=== PATIENT | female | born 1965 | race Caucasian/White ===

== ENCOUNTER 2017-09-19 15:26 | Emergency (ER) | payer SELFPAY ==
[~2017-09-19] VITALS: Ht 167.6 cm; Wt 59.0 kg
[~2017-09-19 15:26] MED LIST: PRED20 PO; VENTAER INH; ZITH250T PO
[2017-09-19 15:31] VITALS: BP 158/85; PULSE 87; RESP 18; TEMP 98; O2SAT 99
--- NOTE | 2017-09-19 15:59 | PD ---
HPI Chief Complaint: Skin Problem Time Seen by Provider: 15:58 Travel History International Travel<30 days: No Contact w/Intl Traveler<30days: No Traveled to known affect area: No History of Present Illness HPI 52-year-old female presents emergency department for evaluation of painful lesion on her left buttock that has increased in size and become more painful over the last 3 days. Patient denies any fever chills. She states the pain is constant, throbbing, 8 out of 10. She states it began draining today. She has no other symptoms to report. PFSH Past Medical History Medical History: Denies Significant Hx ?: Not : 3 Para: 3 Past Surgical History Section: Yes (X 2) Tonsillectomy: Yes Other Surgery: Yes (BILATERAL LUMPECTOMY) Social History Alcohol Use: Yes Tobacco Use: Yes Substance Use: No Allergies-Medications (Allergen,Severity, Reaction): Coded Allergies: shellfish derived (Unverified Allergy, Severe, 11/25/16) sulfamethoxazole (Unverified Allergy, Severe, 11/25/16) trimethoprim (Unverified Allergy, Severe, 11/25/16) Uncoded Allergies: MORPH (Allergy, Severe, 05/20/15) Reported Meds & Prescriptions Reported Meds & Active Scripts Active Ibuprofen 800 Mg Tab 800 Mg PO Q8H PRN Clindamycin (Clindamycin HCl) 150 Mg Cap 300 Mg PO Q6H 10 Days Zithromax Z-Santos (Azithromycin) 250 Mg Tab 250 Mg PO DIRECTED 500 MG (2 TABLETS) PO ON DAY 1, THEN 250 MG (1 TABLET) PO ON DAYS 2 TO 5. Deltasone (Prednisone) 20 Mg Tab 20 Mg PO DAILY Ventolin Hfa (Albuterol Sulfate) 18 Gm Aero 2 Puff INH Q4-6H PRN * SHAKE WELL BEFORE USE * Review of Systems Except as stated in HPI: all other systems reviewed are Neg Physical Exam Narrative GENERAL: Well-nourished, well-developed female patient in no acute distress SKIN: There is an indurated area in the left buttock which measures about 1 cm in diameter. It is fluctuant but there is no pointing or drainage. There is a zone of inflammation around it but no lymphangitis. HEAD: Normocephalic. EYES: No scleral icterus. No injection or drainage. NECK: Supple, trachea midline. No JVD or lymphadenopathy. CARDIOVASCULAR: Elevated rate and rhythm without murmurs, gallops, or rubs. RESPIRATORY: Breath sounds equal bilaterally. No accessory muscle use. GASTROINTESTINAL: Abdomen soft, non-tender, nondistended. MUSCULOSKELETAL: No cyanosis, or edema. BACK: Nontender without obvious deformity. No CVA tenderness. Data Data Last Documented VS Vital Signs Date Time Temp Pulse Resp B/P (MAP) Pulse Ox O2 Delivery O2 Flow Rate FiO2 09/19/17 15:31 98.0 87 18 158/85 (109) 99 Orders Orders Ibuprofen (Motrin) (09/19/17 16:30) Ed Discharge Order (09/19/17 16:23) MDM Medical Decision Making Medical Screen Exam Complete: Yes Emergency Medical Condition: Yes Medical Record Reviewed: Yes Differential Diagnosis Abscess versus erysipelas versus cellulitis versus insect bite Narrative Course 52-year-old female presents emergency department for evaluation of a painful lesion in her left buttock. This is consistent with abscess. I&D is complete. Patient is counseled on care and encouraged follow-up with primary care provider. She agrees to return immediately with acute worsening symptoms. Procedures Procedure Narrative INCISION AND DRAINAGE OF ABSCESS: The area was prepped and was sterilely draped. Topical ethyl chloride was used to anesthetize the area. The area was properly anesthetized. A number 11 scalpel was used to make a 1-cm incision across the area of the abscess. Cultures were obtained. The abscess was drained an irrigated with normal saline. Diagnosis Primary Impression: Left buttock abscess Referrals: Primary Care Physician Patient Instructions: Abscess Incision and Drainage (DC), General Instructions Additional Instructions: Warm compresses and sits baths Follow-up with a primary care provider Start antibiotic today and take it until it is all gone Return immediately with acute worsening symptoms Med/Other Pt SpecificInfo: Prescription(s) given Scripts Ibuprofen (Ibuprofen) 800 Mg Tab 800 MG PO Q8H Y for Pain/Inflammation, #30 TAB 0 Refills Prov: Lana Ruiz 09/19/17 Clindamycin (Clindamycin) 150 Mg Cap 300 MG PO Q6H for Infection for 10 Days, #80 CAP 0 Refills Prov: Lana Ruiz 09/19/17 Disposition: 01 DISCHARGE HOME Condition: Stable Lana Ruiz Sep 19, 2017 15:59
[2017-09-19] MEDS ORDERED: IBUP1TAB7 PO (16:25)
[2017-09-19] MEDS ORDERED: CLIN150C14 PO (16:25)
[2017-09-19] MEDS ORDERED: IBUPROFEN 800 MG TAB PO ONE (16:30)
== END 2017-09-19 16:44 | disposition home or self-care (01) ==
LOC: NEPD 15:26
DX: L02.31 Cutaneous abscess of buttock (principal); Z72.0 Tobacco use; Z88.2 Allergy status to sulfonamides; Z79.899 Other long term (current) drug therapy
CPT/HCPCS: 10060

== ENCOUNTER 2017-09-22 17:03 | Inpatient (IN) | payer SELFPAY ==
[~2017-09-22] VITALS: Ht 167.6 cm; Wt 62.9 kg
[~2017-09-22 17:03] MED LIST changes: +CLIN150C14 PO; +IBUP1TAB7 PO
[2017-09-22 17:28] VITALS: BP 163/75; PULSE 101; RESP 16; TEMP 100.3; O2SAT 100
[2017-09-22 18:17] LABS: BASOPHIL % 0.2 % (0.0-2.0); EOSINOPHIL # 0.1 TH/MM3 (0-0.4); EOSINOPHIL % 1.1 % (0.0-4.0); HEMATOCRIT 39.1 % (35.0-46.0); HEMOGLOBIN 13.4 GM/DL (11.6-15.3); LYMPHOCYTE # 1.1 TH/MM3 (1.0-4.8); MEAN CELL VOLUME 92.9 FL (80.0-100.0); MEAN CORPUSCULAR HEMOGLOBIN 31.7 PG (27.0-34.0); MEAN CORPUSCULAR HGB CONC 34.1 % (32.0-36.0); MEAN PLATELET VOLUME 8.5 FL (7.0-11.0); MONO % 8.2 % (0.0-8.0); MONOCYTE # 0.9 TH/MM3 (0-0.9); NEUT % 80.5 % (16.0-70.0); PLATELET COUNT 184 TH/MM3 (150-450); RED BLOOD COUNT 4.21 MIL/MM3 (4.00-5.30); WHITE BLOOD COUNT 11.2 TH/MM3 (4.0-11.0)
[2017-09-22 18:44] LABS: ALBUMIN 3.4 GM/DL (3.4-5.0); BLOOD UREA NITROGEN 13 MG/DL (7-18); CALCIUM 9.7 MG/DL (8.5-10.1); CHLORIDE 105 MEQ/L (98-107); CREATININE 0.55 MG/DL (0.50-1.00); GLOMERULAR FILTRATION RATE 117 ML/MIN (>89); GLUCOSE,RANDOM 101 MG/DL (74-106); SODIUM (NA) 140 MEQ/L (136-145)
[2017-09-22 18:45] LABS: ALT (GPT) 15 U/L (10-53); AST (GOT) 9 U/L (15-37)
[2017-09-22 18:48] LABS: ALKALINE PHOSPHATASE 93 U/L (45-117); TOTAL BILIRUBIN ADULT 0.4 MG/DL (0.2-1.0); TOTAL PROTEIN 7.7 GM/DL (6.4-8.2)
[2017-09-22] MEDS ORDERED: METOCLOPRAMIDE HCL 10 MG/2 ML VIAL IV PUSH ONE (20:30)
[2017-09-22] MEDS ORDERED: SODIUM CHLORID 0.9% 500 ML INJ 500 ML IV ONE (20:30)
[2017-09-22] MEDS ORDERED: VANCOMYCIN INJ 1,000 MG in SODIUM CHLOR 0.9% 250 ML INJ 250 ML IV ONE (20:30)
[2017-09-22] MEDS ORDERED: MORPHINE SULFATE 4 MG/ML INJ IV PUSH ONE (20:30)
[2017-09-22] MEDS ORDERED: PIPERACIL-TAZO 3.375 GM PREMIX 50 ML IV ONE (20:30)
[2017-09-22] MEDS ORDERED: ACETAMINOPHEN/HYDROcodone 325 MG/5 MG TAB PO ONE (21:00)
[2017-09-22] MEDS ORDERED: KETOROLAC TROMETHAMINE 30 MG/ML (IVP) VIAL IV PUSH ONE (21:00)
--- NOTE | 2017-09-22 21:08 | PD ---
HPI Chief Complaint: Skin Problem Time Seen by Provider: 20:10 Travel History International Travel<30 days: No Contact w/Intl Traveler<30days: No Traveled to known affect area: No History of Present Illness HPI 52-year-old female that presents to the ED for evaluation of skin problem. Patient reports that she has had a abscess on her left buttocks since last Thursday. Patient was seen here over the weekend on Thursday and had it drained. Patient will start antibiotics. Per patient the symptoms have not improved but actually seemed to be worsening. Per patient the abscess itself seems to be getting bigger and bigger. She does have drainage from the mass but she states that the pain and the symptoms appear to not be improving. She also states having some fevers and chills and sweats. She has been taking antibiotics since her last visit here. She denies any history of MRSA. She does have a allergy to Bactrim and morphine. She denies any urinary or bowel movement issues. Per patient the pain is 8 out of 10 and gets worse with touch. No history of this in the past. No history of IV drug abuse per patient. Has no other medical issues at this time. Takes no prescribed medications other than the medications given to her on her last visit here. PFSH Past Medical History Diminished Hearing: No Tetanus Vaccination: Unknown ?: Not : 3 Para: 3 Past Surgical History Section: Yes (X 2) Tonsillectomy: Yes Other Surgery: Yes (BILATERAL LUMPECTOMY) Social History Alcohol Use: Yes Tobacco Use: Yes Substance Use: No Allergies-Medications (Allergen,Severity, Reaction): Coded Allergies: morphine (Verified Allergy, Severe, 09/22/17) shellfish derived (Verified Allergy, Severe, 09/22/17) sulfamethoxazole (Verified Allergy, Severe, 09/22/17) trimethoprim (Verified Allergy, Severe, 09/22/17) Reported Meds & Prescriptions Reported Meds & Active Scripts Active Ibuprofen 800 Mg Tab 800 Mg PO Q8H PRN Clindamycin (Clindamycin HCl) 150 Mg Cap 300 Mg PO Q6H 10 Days Review of Systems Except as stated in HPI: all other systems reviewed are Neg Physical Exam Narrative GENERAL: SKIN: Warm and dry. Seen with female nurse present at all times. Patient does have a significant mass on her left lower buttocks. Masses almost about 10-20 cm in diameter. Patient does have an opening about 1 cm in diameter with purulence coming out of it. Very tender to touch. Some lymphadenopathy noted on the left upper groin area. Very warm to touch. HEAD: Atraumatic. Normocephalic. EYES: Pupils equal and round. No scleral icterus. No injection or drainage. ENT: No nasal bleeding or discharge. Mucous membranes pink and moist. Tongue is midline. No uvula deviation. NECK: Trachea midline. No JVD. CARDIOVASCULAR: Regular rate and rhythm. No murmurs, S3, S4. RESPIRATORY: No accessory muscle use. Clear to auscultation. Breath sounds equal bilaterally. GASTROINTESTINAL: Abdomen soft, non-tender, nondistended. Hepatic and splenic margins not palpable. MUSCULOSKELETAL: Extremities without clubbing, cyanosis, or edema. No obvious deformities. Full range of motion of the upper and lower extremities bilaterally. 2+ pulses bilaterally. NEUROLOGICAL: Awake and alert. No obvious cranial nerve deficits. Motor grossly within normal limits. Five out of 5 muscle strength in the arms and legs. Normal speech. PSYCHIATRIC: Appropriate mood and affect; insight and judgment normal. Data Data Last Documented VS Vital Signs Date Time Temp Pulse Resp B/P (MAP) Pulse Ox O2 Delivery O2 Flow Rate FiO2 09/22/17 17:28 100.3 101 16 163/75 (104) 100 Orders Orders Complete Blood Count With Diff (09/22/17 17:30) Comprehensive Metabolic Panel (09/22/17 17:30) Lactic Acid Sepsis Protocol (09/22/17 17:30) Blood Culture (09/22/17 17:30) Ct Pelvis W Iv Contrast(Rout) (09/22/17 ) Vancomycin Inj (Vancomycin Inj) (09/22/17 20:30) Piperacil-Tazo 3.375 Gm Premix (Zosyn 3. (09/22/17 20:30) Morphine Inj (Morphine Inj) (09/22/17 20:30) Metoclopramide Inj (Reglan Inj) (09/22/17 20:30) Sodium Chlorid 0.9% 500 Ml Inj (Ns 500 M (09/22/17 20:30) Ketorolac Inj (Toradol Inj) (09/22/17 21:00) Acetamin-Hydrocod 325-5 Mg (Watts 5-325 (09/22/17 21:00) Iohexol 350 Inj (Omnipaque 350 Inj) (09/22/17 21:34) Admit Order (Ed Use Only) (09/22/17 22:40) Labs Laboratory Tests Test 09/22/17 17:48 White Blood Count 11.2 TH/MM3 Red Blood Count 4.21 MIL/MM3 Hemoglobin 13.4 GM/DL Hematocrit 39.1 % Mean Corpuscular Volume 92.9 FL Mean Corpuscular Hemoglobin 31.7 PG Mean Corpuscular Hemoglobin Concent 34.1 % Red Cell Distribution Width 14.0 % Platelet Count 184 TH/MM3 Mean Platelet Volume 8.5 FL Neutrophils (%) (Auto) 80.5 % Lymphocytes (%) (Auto) 10.0 % Monocytes (%) (Auto) 8.2 % Eosinophils (%) (Auto) 1.1 % Basophils (%) (Auto) 0.2 % Neutrophils # (Auto) 9.0 TH/MM3 Lymphocytes # (Auto) 1.1 TH/MM3 Monocytes # (Auto) 0.9 TH/MM3 Eosinophils # (Auto) 0.1 TH/MM3 Basophils # (Auto) 0.0 TH/MM3 CBC Comment DIFF FINAL Differential Comment Blood Urea Nitrogen 13 MG/DL Creatinine 0.55 MG/DL Random Glucose 101 MG/DL Total Protein 7.7 GM/DL Albumin 3.4 GM/DL Calcium Level 9.7 MG/DL Alkaline Phosphatase 93 U/L Aspartate Amino Transf (AST/SGOT) 9 U/L Alanine Aminotransferase (ALT/SGPT) 15 U/L Total Bilirubin 0.4 MG/DL Sodium Level 140 MEQ/L Potassium Level 4.0 MEQ/L Chloride Level 105 MEQ/L Carbon Dioxide Level 27.0 MEQ/L Anion Gap 8 MEQ/L Estimat Glomerular Filtration Rate 117 ML/MIN Lactic Acid Level 0.9 mmol/L MDM Medical Decision Making Medical Screen Exam Complete: Yes Emergency Medical Condition: Yes Medical Record Reviewed: Yes Interpretation(s) CBC & BMP Diagram 09/22/17 17:48 Total Protein 7.7, Albumin 3.4, Calcium Level 9.7, Alkaline Phosphatase 93, Aspartate Amino Transf (AST/SGOT) 9 L, Alanine Aminotransferase (ALT/SGPT) 15, Total Bilirubin 0.4 lactic acid WNL Last Impressions Pelvis CT 09/22/17 0000 Signed Impressions: CONCLUSION: 1. Subcutaneous inflammatory changes in left medial thigh extending to the lab ia. Differential Diagnosis Abscess versus failed outpatient treatment versus significant abscess versus sepsis versus cellulitis Narrative Course 52-year-old female that presents to the ED for evaluation of abscess. Patient was properly examined and was found to have signs and symptoms very concerning for significant worsening of the abscess. Abscess seems to be getting bigger even though it is already open and draining. There is significant fluctuance noted going through the groin area. She does have lymphadenopathy. She is already compliant with the medications. Labs and imaging were ordered. Patient will have CT and IV antibiotics. Labs and imaging show slightly elevated white blood cell count as well as what appears to be acute subcutaneous changes to the left buttocks that appear to be extending into the labia. I reviewed the patient's medical records and per the provider who saw her on the ninth of this month the mass was about 1 cm. She had it drained. At this time recommendations for IV antibiotics and admission for further evaluation and possible surgical consult if does not improve. Patient agrees with this. Case discussed with my attending Dr Ortiz who agrees with plan. Residents agreed to admission to their team. Sepsis Criteria SIRS Criteria (2 or more): Heart rate over 90 Diagnosis Primary Impression: Cellulitis and abscess of buttock Additional Impression: Failure of outpatient treatment Admitting Information Admitting Physician Requests: Admit Ezio Hart Sep 22, 2017 21:08
[2017-09-22] MEDS ORDERED: IOHEXOL 350 MG/ML 10 ML VIAL (for RAD DIAG) IVCONTRAST ONE (21:34)
--- NOTE | 2017-09-22 21:41 | RADRPT ---
EXAM DATE: 09/22/2017 9:37 PM EDT AGE/SEX: 52 years / Female INDICATIONS: Fever, left buttocks abscess. CLINICAL DATA: This is the patient's initial encounter. Patient reports that signs and symptoms have been present for 1 day and indicates a pain score of 3/10. MEDICAL/SURGICAL HISTORY: None. section. RADIATION DOSE: 10.68 CTDI (mGy) COMPARISON: No prior exams available for comparison. TECHNIQUE: Multiple contiguous helical axial images were obtained through pelvis following bolus inf usion of 80 ml Omnipaque 350 (iohexol) nonionic water-soluble contrast as a single exam dose. Imag es were obtained using multiple row detector helical technique. . Using automated exposure control an d adjustment of the mA and/or kV according to patient size, radiation dose was kept as low as reasona ambrosio achievable to obtain optimal diagnostic quality images. FINDINGS: There is a large area of induration in the subcutaneous tissues left buttock that extends to the labi a without defined fluid. Origin would appear to be below the rectum. Right buttocks unremarkable. CONCLUSION: 1. Subcutaneous inflammatory changes in left medial thigh extending to the labia. Electronically signed by: Dyllan Cabrera MD 09/22/2017 9:40 PM EDT
--- NOTE | 2017-09-22 23:00 | HHI.HP ---
HPI Service Family Medicine Primary Care Physician No Primary Care Physician Admission Diagnosis acute worsening cellulitis and abcess of left buttox, failed outpati Diagnoses: International Travel<30 Days: No Contact w/Intl Traveler<30days: No Known Affected Area: No History of Present Illness Mrs. Yuan is a 52 y/o F presenting with failed ABX therapy of her L buttock cellulitis. Patient states she was seen in the ED on 09/19/17, for a "large pimple on her buttocks." During her ER visit the site was drained with minimal fluid, and she was discharged home on Clindamycin antibiotics ever 6 hours. She states she was compliant with the medication. The first night she noticed some relief, however Thursday she started having fevers with chills. She then noticed that the area was enlarging. Her pain also increased to the point she was unable to walk. Her pain is exacerbated by movement, and relieved by rest. She states that the lesion is approximately 7x bigger. She states the lesion is draining from the previous incision site, but the drainage is serosanguineous fluid only without pus. She endorses having inguinal lymphadenopathy as well as dysuria. Otherwise she has no complaints. (Mikie Flores MD R2) Review of Systems Constitutional: COMPLAINS OF: Fever, Chills Eyes: DENIES: Blurred vision, Double Vision Ears, nose, mouth, throat: DENIES: Throat pain, Running Nose Respiratory: DENIES: Cough, Shortness of breath Cardiovascular: DENIES: Chest pain, Palpitations Gastrointestinal: COMPLAINS OF: Abdominal pain, Diarrhea, Nausea, Vomiting, DENIES: Constipation Genitourinary: COMPLAINS OF: Dysuria, DENIES: Urinary frequency, Urinary incontinence Musculoskeletal: COMPLAINS OF: Muscle aches, Stiffness Integumentary: COMPLAINS OF: Rash Hematologic/lymphatic: COMPLAINS OF: Lymphadenopathy Immunologic/allergic: DENIES: Urticaria Neurologic: COMPLAINS OF: Headache Psychiatric: DENIES: Mood changes (Mikie Flores MD R2) Past Family Social History Past Medical History Breast Cancer with lumpectomy Past Surgical History C-sections Lumpectomy (Mikie Flores MD R2) Allergies: Coded Allergies: morphine (Verified Allergy, Severe, 09/22/17) shellfish derived (Verified Allergy, Severe, 09/22/17) sulfamethoxazole (Verified Allergy, Severe, 09/22/17) trimethoprim (Verified Allergy, Severe, 09/22/17) Family History Father - DM, otherwise healthy Mother - DM, otherwise healthy No other reported FMHx Social History She lives together with her Fiance. Currently works at [employer]. Alcohol - occasional, last drink was last week, 2-3 beers each episode Tobacco - 1/2 ppd, smoking for 15 years, no desire to quit Illicit - No reported history of illicit drug use (Mikie Flores MD R2) Physical Exam Vital Signs Vital Signs Date Time Temp Pulse Resp B/P (MAP) Pulse Ox O2 Delivery O2 Flow Rate FiO2 09/22/17 17:28 100.3 101 16 163/75 (104) 100 Physical Exam GENERAL: Well-nourished, well-developed female lying in bed with significant other at bedside and mild distress due to left buttock pain. SKIN: Warm and moist. No rash. L Buttock: Pelvic and buttock area examined with female infection prevention practitioner at all times. Left buttock with large, palpable indurated area measuring larger than 10 cm in horizontal diameter with 1 cm circular opening with purulent material visualized, but not draining. Patient very tender to palpation along the buttock as well as the inguinal and labial area. Tender lymphadenopathy appreciated in the inguinal area. Area very warm to palpation with erythematous skin changes. No fluctuant areas appreciated for possible abscess formation. HEENT: Atraumatic, normocephalic with extraocular motions intact. No rhinorrhea. Oropharynx clear. No palpable thyroid abnormality, LAD, or JVD appreciated. CARDIOVASCULAR: Tachycardic rate with regular rhythm. No obvious murmurs, gallops, or rubs. 2+ pulses in all four extremities. RESPIRATORY: Clear to auscultation bilaterally with no crackles, wheezes, or rhonchi. No increased work of breathing. GASTROINTESTINAL: Abdomen soft, non-tender, nondistended with positive bowel sounds. No masses appreciated. MUSCULOSKELETAL: No cyanosis or edema. No calf tenderness. Ambulating favoring the left side due to pain without assistance. NEURO/PSYCH: Afocal. Awake, alert, and oriented x3. Normal speech and judgement. Laboratory Laboratory Tests Test 09/22/17 17:48 White Blood Count 11.2 Red Blood Count 4.21 Hemoglobin 13.4 Hematocrit 39.1 Mean Corpuscular Volume 92.9 Mean Corpuscular Hemoglobin 31.7 Mean Corpuscular Hemoglobin Concent 34.1 Red Cell Distribution Width 14.0 Platelet Count 184 Mean Platelet Volume 8.5 Neutrophils (%) (Auto) 80.5 Lymphocytes (%) (Auto) 10.0 Monocytes (%) (Auto) 8.2 Eosinophils (%) (Auto) 1.1 Basophils (%) (Auto) 0.2 Neutrophils # (Auto) 9.0 Lymphocytes # (Auto) 1.1 Monocytes # (Auto) 0.9 Eosinophils # (Auto) 0.1 Basophils # (Auto) 0.0 CBC Comment DIFF FINAL Differential Comment Blood Urea Nitrogen 13 Creatinine 0.55 Random Glucose 101 Total Protein 7.7 Albumin 3.4 Calcium Level 9.7 Alkaline Phosphatase 93 Aspartate Amino Transf (AST/SGOT) 9 Alanine Aminotransferase (ALT/SGPT) 15 Total Bilirubin 0.4 Sodium Level 140 Potassium Level 4.0 Chloride Level 105 Carbon Dioxide Level 27.0 Anion Gap 8 Estimat Glomerular Filtration Rate 117 Lactic Acid Level 0.9 Date/Time Source Procedure Growth Status 09/22/17 17:55 Blood Peripheral Aerobic Blood Culture Pending Received 09/22/17 17:55 Blood Peripheral Anaerobic Blood Culture Pending Received (Mikie Flores MD R2) Result Diagram: 09/22/17 1748 09/22/17 1748 Imaging Last [address] 09/22/17 0000 Signed Impressions: CONCLUSION: 1. Subcutaneous inflammatory changes in left medial thigh extending to the lab ia. (Mikie Flores MD R2) Caprini VTE Risk Assessment Caprini VTE Risk Assessment: Mod/High Risk (score >= 2) Caprini Risk Assessment Model Point Value = 1 Point Value = 2 Point Value = 3 Point Value = 5 Age 41-60 Minor surgery BMI > 25 kg/m2 Swollen legs Varicose veins or History of unexplained or recurrent spontaneous Oral contraceptives or hormone replacement Sepsis (< 1 month) Serious lung disease, including pneumonia (< 1 month) Abnormal pulmonary function Acute myocardial infarction Congestive heart failure (< 1 month) History of inflammatory bowel disease Medical patient at bed rest Age 61-74 Arthroscopic surgery Major open surgery (> 45 min) Laparoscopic surgery (> 45 min) Malignancy Confined to bed (> 72 hours) Immobilizing plaster cast Central venous access Age >= 75 History of VTE Family history of VTE Factor V Leiden Prothrombin [id number] Lupus anticoagulant Anticardiolipin antibodies Elevated serum homocysteine Heparin-induced thrombocytopenia Other congenital or acquired thrombophilia Stroke (< 1 month) Elective arthroplasty Hip, pelvis, or leg fracture Acute spinal cord injury (< 1 month) Prophylaxis Regimen Total Risk Factor Score Risk Level Prophylaxis Regimen 0-1 Low Early ambulation 2 Moderate Order ONE of the following: *Sequential Compression Device (SCD) *Heparin 5000 units SQ BID 3-4 Higher Order ONE of the following medications: *Heparin 5000 units SQ TID *Enoxaparin/Lovenox 40 mg SQ daily (WT < 150 kg, CrCl > 30 mL/min) *Enoxaparin/Lovenox 30 mg SQ daily (WT < 150 kg, CrCl > 10-29 mL/min) *Enoxaparin/Lovenox 30 mg SQ BID (WT < 150 kg, CrCl > 30 mL/min) AND/OR *Sequential Compression Device (SCD) 5 or more Highest Order ONE of the following medications: *Heparin 5000 units SQ TID (Preferred with Epidurals) *Enoxaparin/Lovenox 40 mg SQ daily (WT < 150 kg, CrCl > 30 mL/min) *Enoxaparin/Lovenox 30 mg SQ daily (WT < 150 kg, CrCl > 10-29 mL/min) *Enoxaparin/Lovenox 30 mg SQ BID (WT < 150 kg, CrCl > 30 mL/min) AND *Sequential Compression Device (SCD) (Mikie Flores MD R2) Assessment and Plan Assessment and Plan Ms. Yuan is a 52-year-old female admitted for cellulitis secondary to failure of outpatient antibiotics. Code Status Full code Discussed Condition With ROSEANNE Cervantes (Mikie Flores MD R2) Problem List: (1) Sepsis ICD Codes: A41.9 - Sepsis, unspecified organism Status: Resolved Plan: -Patient presenting with fever up to 100.3 after at home Tylenol dose with tachycardia up to 101 bpm. -Likely source of infection left buttock cellulitis. -Lactic acid 0.9 not meeting severe sepsis criteria (2) Cellulitis and abscess of buttock ICD Codes: L02.31 - Cutaneous abscess of buttock; L03.317 - Cellulitis of buttock Status: Acute Plan: -CT abdomen and pelvis: Large area of induration in the subcutaneous tissues of the left buttock that extend to the labia without defined fluid. -CBC: WBC 11.2 with 80.5% neutrophils -ESR: 60 -Blood cultures: Pending -K thermia pad ordered Medications: -Vancomycin and Zosyn given once in ED -Continue vancomycin, pharmacy consulted for renal dosing -Continue Zosyn 3.375 g every 6 hours to cover for gram-negative and anaerobic bacteria as lesion is proximal to the rectum -Toradol 30 mg every 6 hours scheduled -Tylenol as needed for fever (3) Failure of outpatient treatment ICD Codes: Z78.9 - Other specified health status Status: Acute Plan: -Patient admitted to failing outpatient therapy with clindamycin (4) Nutrition, metabolism, and development symptoms ICD Codes: R63.8 - Other symptoms and signs concerning food and fluid intake Status: Acute Plan: -Fluids: Normal saline at 90 mL/h -Diet: Regular as tolerated -Electrolytes: Within normal limits, continue to monitor -Prophylaxis: Tylenol as needed for fever, clonidine as needed for blood pressure greater than 180/110, albuterol as needed for shortness of breath, constipation protocol, Zofran as needed for nausea/vomiting -Physical therapy consulted (5) DVT prophylaxis Status: Acute Plan: -SCDs Medications: -Heparin 5000 units every 8 hours (Mikie Flores MD R2) Problem List: (1) Sepsis ICD Codes: A41.9 - Sepsis, unspecified organism Status: Resolved Plan: -Patient presenting with fever up to 100.3 after at home Tylenol dose with tachycardia up to 101 bpm. -Likely source of infection left buttock cellulitis. -Lactic acid 0.9 not meeting severe sepsis criteria (2) Cellulitis and abscess of buttock ICD Codes: L02.31 - Cutaneous abscess of buttock; L03.317 - Cellulitis of buttock Status: Acute Plan: -CT abdomen and pelvis: Large area of induration in the subcutaneous tissues of the left buttock that extend to the labia without defined fluid. -CBC: WBC 11.2 with 80.5% neutrophils -ESR: 60 -Blood cultures: Pending -K thermia pad ordered Medications: -Vancomycin and Zosyn given once in ED -Continue vancomycin, pharmacy consulted for renal dosing -Continue Zosyn 3.375 g every 6 hours to cover for gram-negative and anaerobic bacteria as lesion is proximal to the rectum -Toradol 30 mg every 6 hours scheduled -Tylenol as needed for fever (3) Failure of outpatient treatment ICD Codes: Z78.9 - Other specified health status Status: Acute Plan: -Patient admitted to failing outpatient therapy with clindamycin (4) Nutrition, metabolism, and development symptoms ICD Codes: R63.8 - Other symptoms and signs concerning food and fluid intake Status: Acute Plan: -Fluids: Normal saline at 90 mL/h -Diet: Regular as tolerated -Electrolytes: Within normal limits, continue to monitor -Prophylaxis: Tylenol as needed for fever, clonidine as needed for blood pressure greater than 180/110, albuterol as needed for shortness of breath, constipation protocol, Zofran as needed for nausea/vomiting -Physical therapy consulted (5) DVT prophylaxis Status: Acute Plan: -SCDs Medications: -Heparin 5000 units every 8 hours See the residents documentation for details. I saw and evaluated the patient regarding the martinez portions of this evaluation and agree with the residents findings and plans as written. Parts of this note were created using [employer] voice recognition software program. While efforts were made to correct any mistakes made by this software, some mistakes, errors, and omissions may remain in the final note that were not caught when the note was originally created. Plan of care was discussed and agreed upon with the patient as specifically documented in the above note. An opportunity to ask questions with explanation was provided. Patient voiced understanding on all information reviewed and discussed. (Nick Weeks MD) Physician Certification 2 Midnight Certification Type: Admission for Inpatient Services Order for Inpatient Services The services are ordered in accordance with Medicare regulations or non- Medicare payer requirements, as applicable. In the case of services not specified as inpatient-only, they are appropriately provided as inpatient services in accordance with the 2-midnight benchmark. Estimated LOS (days): 3 3 days is the estimated time the patient will need to remain in the hospital, assuming treatment plan goals are met and no additional complications. Post-Hospital Plan: Home (Mikie Flores MD R2) Problem Qualifiers (1) Sepsis: Qualified Codes: A41.9 - Sepsis, unspecified organism Mikie Flores MD R2 Sep 22, 2017 23:00 Nick Weeks MD Sep 24, 2017 11:53
[2017-09-22] MEDS ORDERED: SODIUM CHLORIDE 0.9% FLUSH 10 ML FLUSH IV FLUSH PRN (23:30)
[2017-09-22] MEDS ORDERED: Vancomycin Consult Pharmacy 1 EA OTHER SCH (23:30)
[2017-09-23] VITALS (8 sets, daily range): BP systolic 94–141; BP diastolic 57–83; PULSE 63–83; RESP 16–21; TEMP 97.6–98.5; O2SAT 96–99
[2017-09-23] MEDS: SODIUM CHLOR 0.9% 1000 ML INJ 1,000 ML IV SCH ×3 (00:03→21:35)
[2017-09-23] MEDS: KETOROLAC TROMETHAMINE 30 MG/ML (IVP) VIAL IVP SCH ×5 (00:04→23:51)
[2017-09-23] MEDS: HEPARIN SODIUM - SQ 10,000 UNITS/ML VIAL SQ SCH ×4 (00:04→23:52)
[2017-09-23] MEDS ORDERED: BISACODYL 10 MG SUPP RECTAL PRN (01:15)
[2017-09-23] MEDS ORDERED: RESP: ALBUTEROL 2.5 MG/3 ML NEB (PRN) NEB (01:15)
[2017-09-23] MEDS ORDERED: MAGNESIUM HYDROXIDE SUSP 30 ML CUP PO PRN (01:15)
[2017-09-23] MEDS ORDERED: SENNOSIDES 8.6 MG TAB PO PRN (01:15)
[2017-09-23] MEDS ORDERED: cloNIDine HCL 0.1 MG TAB PO PRN (01:15)
[2017-09-23 05:06] LABS: AUTOMATED NEUTROPHIL # 5.9 TH/MM3 (1.8-7.7); BASOPHIL % 0.3 % (0.0-2.0); EOSINOPHIL # 0.1 TH/MM3 (0-0.4); EOSINOPHIL % 1.6 % (0.0-4.0); HEMATOCRIT 32.3 % (35.0-46.0); LYMPH % 12.3 % (9.0-44.0); LYMPHOCYTE # 0.9 TH/MM3 (1.0-4.8); MEAN CELL VOLUME 93.2 FL (80.0-100.0); MEAN CORPUSCULAR HEMOGLOBIN 31.8 PG (27.0-34.0); MEAN CORPUSCULAR HGB CONC 34.1 % (32.0-36.0); MEAN PLATELET VOLUME 8.9 FL (7.0-11.0); MONO % 8.9 % (0.0-8.0); MONOCYTE # 0.7 TH/MM3 (0-0.9); NEUT % 76.9 % (16.0-70.0); PLATELET COUNT 154 TH/MM3 (150-450); RED BLOOD COUNT 3.47 MIL/MM3 (4.00-5.30); RED CELL DISTRIBUTION WIDTH 13.7 % (11.6-17.2); WHITE BLOOD COUNT 7.6 TH/MM3 (4.0-11.0)
[2017-09-23 05:22] LABS: BICARBONATE 25.2 MEQ/L (21.0-32.0); CALCIUM 8.1 MG/DL (8.5-10.1); CREATININE 0.46 MG/DL (0.50-1.00)
[2017-09-23] MEDS: PIPERACIL-TAZO 3.375 GM PREMIX 50 ML IV SCH ×4 (05:34→23:50)
[2017-09-23] MEDS ORDERED: POTASSIUM CHLORIDE 10 MEQ CONTROLLED RELEASE TAB PO ONE (05:45)
[2017-09-23] MEDS: SODIUM CHLORIDE 0.9% FLUSH 10 ML FLUSH IV FLUSH SCH ×2 (08:35→21:24)
[2017-09-23 08:50] LABS: INTERNATIONAL NORMALIZED RATIO 1.1 RATIO
[2017-09-23] MEDS ORDERED: VANCOMYCIN INJ 1,200 MG in SODIUM CHLOR 0.9% 250 ML INJ 250 ML IV SCH (09:00)
[2017-09-23] MEDS: DOCUSATE SODIUM 50 MG/SENNA 8.6 MG TAB PO SCH ×2 (09:00→21:24)
[2017-09-23] MEDS: ACETAMINOPHEN 500 MG CPLT PO PRN ×2 (10:19→21:25)
[2017-09-23] MEDS: ONDANSETRON ODT 4 MG TAB PO PRN (15:45)
--- NOTE | 2017-09-23 17:45 | HHI.FPPN ---
Subjective Remarks Patient was seen and evaluated this morning. She is in obvious pain. Patient denies chest pain, heart palpitations, shortness of breath, nausea/vomiting, diarrhea and constipation. All questions were answered. (Amber Wolff MD R1) Objective Vitals Vital Signs Date Time Temp Pulse Resp B/P (MAP) Pulse Ox O2 Delivery O2 Flow Rate FiO2 09/23/17 15:32 98.1 74 18 141/76 (97) 99 09/23/17 13:48 20 09/23/17 11:25 97.7 83 18 125/83 (97) 97 09/23/17 11:24 20 09/23/17 07:45 97.6 70 16 124/74 (91) 98 09/23/17 06:10 76 18 105/66 (79) 96 09/23/17 03:42 98.5 77 16 94/57 (69) 98 09/23/17 00:09 98.2 76 16 114/64 (81) 97 09/22/17 17:28 100.3 101 16 163/75 (104) 100 I/O 09/22/17 09/22/17 09/22/17 09/23/17 09/23/17 09/23/17 07:00 15:00 23:00 07:00 15:00 23:00 Intake Total 530 ml 300 ml 50 ml Balance 530 ml 300 ml 50 ml Intake Oral 480 ml IV Total 50 ml 300 ml 50 ml # Voids 2 (Amber Wolff MD R1) Result Diagram: 09/23/17 0352 09/23/17 0352 Imaging Last Impressions Pelvis CT 09/22/17 0000 Signed Impressions: CONCLUSION: 1. Subcutaneous inflammatory changes in left medial thigh extending to the lab ia. Objective Remarks GENERAL: Well-nourished, well-developed female lying in bed, in obvious distress. SKIN: Warm and moist. No rash. * L Buttocks: Left buttocks with large, palpable indurated area measuring larger than 10 cm in horizontal diameter with 1 cm circular opening with purulent material visualized, but not draining. Patient very tender to palpation along the buttocks. Area warm to palpation with erythematous skin changes. No fluctuant areas appreciated for possible abscess formation. HEENT: Atraumatic, normocephalic with extraocular motions intact. No rhinorrhea. CARDIOVASCULAR: Tachycardic rate with regular rhythm. No obvious murmurs, gallops, or rubs. RESPIRATORY: No increased work of breathing. Clear to auscultation bilaterally with no crackles, wheezes, or rhonchi. GASTROINTESTINAL: Positive bowel sounds. Abdomen soft, non-tender, nondistended. No masses appreciated. MUSCULOSKELETAL: No cyanosis or edema. No calf tenderness. Ambulating favoring the left side due to pain without assistance. NEURO/PSYCH: Awake, alert, and oriented x3. Normal speech and judgement. Medications and IVs Current Medications Medications (Trade) Dose Ordered Sig/Helene Route Start Time Stop Time Status Last Admin (NS Flush) 2 ml BID IV FLUSH 09/23/17 09:00 09/23/17 08:35 (NS Flush) 2 ml UNSCH PRN IV FLUSH 09/22/17 23:30 Sodium Chloride 1,000 ml @ 90 mls/hr Q11H7M IV 09/22/17 23:21 09/23/17 08:36 Pharmacy Profile Note 0 ml @ 0 mls/hr UNSCH OTHER 09/22/17 23:30 (Tylenol) 500 mg Q4H PRN PO 09/22/17 23:30 09/23/17 10:19 (Toradol Inj) 30 mg Q6H IVP 09/22/17 23:30 09/27/17 23:29 09/23/17 11:23 (Heparin Inj) 5,000 units Q8H SQ 09/22/17 23:30 09/23/17 15:46 Piperacillin Sod/ Tazobactam Sod 50 ml @ 100 mls/hr Q6H IV 09/23/17 04:00 09/23/17 15:46 (Zofran Odt) 4 mg Q6H PRN PO 09/23/17 01:15 09/23/17 15:45 (Bessy-Colace) 1 tab BID PO 09/23/17 09:00 (Milk Of Magnesia Liq) 30 ml Q12H PRN PO 09/23/17 01:15 (Senokot) 17.2 mg Q12H PRN PO 09/23/17 01:15 (Dulcolax Supp) 10 mg DAILY PRN RECTAL 09/23/17 01:15 (Albuterol Neb) 2.5 mg Q6HR NEB PRN NEB 09/23/17 01:15 (Catapres) 0.1 mg Q6H PRN PO 09/23/17 01:15 Vancomycin HCl 1000 mg/Sodium Chloride 250 ml @ 250 mls/hr Q12H IV 09/23/17 21:00 ([facility] Info) SPECIFIC LAB TO BE ... ONCE ONCE .XX 09/25/17 08:45 09/25/17 08:46 (Amber Wolff MD R1) Urinary Catheter: No (Amber Wolff MD R1) Vascular Central Line Catheter: No (Amber Wolff MD R1) A/P Assessment and Plan Patient is a 52-year-old female admitted for cellulitis secondary to failure of outpatient antibiotics. Discharge Planning Pending clinical improvement. (Amber Wolff MD R1) Problem List: (1) Sepsis ICD Codes: A41.9 - Sepsis, unspecified organism Status: Resolved Plan: On admission, patient met sepsis criteria with fever up to 100.3 after at home Tylenol dose with tachycardia up to 101 bpm. Likely source of infection left buttock cellulitis. Lactic acid 0.9. Resolved as of 09/23. (2) Cellulitis and abscess of buttock ICD Codes: L02.31 - Cutaneous abscess of buttock; L03.317 - Cellulitis of buttock Status: Acute Plan: Patient with cellulitis. Failed outpatient antibiotic treatment. Admission Labs: * WBC 11.2 with 80.5% neutrophils. * ESR: 60. Labs 09/23: * WBC 7.6. Microbiology: * Blood culture pending. * Wound culture pending. Imaging: * CT abdomen and pelvis 09/22: Large area of induration in the subcutaneous tissues of the left buttock that extend to the labia without defined fluid. Orders: * K thermia pad ordered. Medications: * Vancomycin and Zosyn given once in ED. * Continue vancomycin, pharmacy consulted for renal dosing. * Continue Zosyn 3.375 g q6hr to cover for gram-negative and anaerobic bacteria as lesion is proximal to the rectum. * Toradol 30 mg IV q6hr. * Tylenol as needed for fever. (3) Failure of outpatient treatment ICD Codes: Z78.9 - Other specified health status Status: Acute Plan: Patient admitted to failing outpatient therapy with clindamycin. (4) Nutrition, metabolism, and development symptoms ICD Codes: R63.8 - Other symptoms and signs concerning food and fluid intake Status: Acute Plan: Fluids: * Normal saline at 90 mL/h. Diet: * Regular as tolerated. Electrolytes: * Monitor and replete as necessary. (5) DVT prophylaxis Status: Acute Plan: SCDs Medications: * Heparin 5000 units q8hr. (Amber Wolff MD R1) Problem List: (1) Sepsis ICD Codes: A41.9 - Sepsis, unspecified organism Status: Resolved Plan: On admission, patient met sepsis criteria with fever up to 100.3 after at home Tylenol dose with tachycardia up to 101 bpm. Likely source of infection left buttock cellulitis. Lactic acid 0.9. Resolved as of 09/23. (2) Cellulitis and abscess of buttock ICD Codes: L02.31 - Cutaneous abscess of buttock; L03.317 - Cellulitis of buttock Status: Acute Plan: Patient with cellulitis. Failed outpatient antibiotic treatment. Admission Labs: * WBC 11.2 with 80.5% neutrophils. * ESR: 60. Labs 09/23: * WBC 7.6. Microbiology: * Blood culture pending. * Wound culture pending. Imaging: * CT abdomen and pelvis 09/22: Large area of induration in the subcutaneous tissues of the left buttock that extend to the labia without defined fluid. Orders: * K thermia pad ordered. Medications: * Vancomycin and Zosyn given once in ED. * Continue vancomycin, pharmacy consulted for renal dosing. * Continue Zosyn 3.375 g q6hr to cover for gram-negative and anaerobic bacteria as lesion is proximal to the rectum. * Toradol 30 mg IV q6hr. * Tylenol as needed for fever. (3) Failure of outpatient treatment ICD Codes: Z78.9 - Other specified health status Status: Acute Plan: Patient admitted to failing outpatient therapy with clindamycin. (4) Nutrition, metabolism, and development symptoms ICD Codes: R63.8 - Other symptoms and signs concerning food and fluid intake Status: Acute Plan: Fluids: * Normal saline at 90 mL/h. Diet: * Regular as tolerated. Electrolytes: * Monitor and replete as necessary. (5) DVT prophylaxis Status: Acute Plan: SCDs Medications: * Heparin 5000 units q8hr. See the residents documentation for details. I saw and evaluated the patient regarding the martinez portions of this evaluation and agree with the residents findings and plans as written. Parts of this note were created using [employer] voice recognition software program. While efforts were made to correct any mistakes made by this software, some mistakes, errors, and omissions may remain in the final note that were not caught when the note was originally created. Plan of care was discussed and agreed upon with the patient as specifically documented in the above note. An opportunity to ask questions with explanation was provided. Patient voiced understanding on all information reviewed and discussed. (Nick Weeks MD) Problem Qualifiers (1) Sepsis: Qualified Codes: A41.9 - Sepsis, unspecified organism Amber Wolff MD R1 Sep 23, 2017 17:45 Nick Weeks MD Sep 24, 2017 12:12
[2017-09-23] MEDS: VANCOMYCIN 1,000 MG/NS 250 ML IV SCH ×2 (21:24)
[2017-09-24] MEDS: PIPERACIL-TAZO 3.375 GM PREMIX 50 ML IV SCH ×4 (05:23→22:50)
[2017-09-24] MEDS: KETOROLAC TROMETHAMINE 30 MG/ML (IVP) VIAL IVP SCH ×4 (06:05→23:09)
[2017-09-24] MEDS: HEPARIN SODIUM - SQ 10,000 UNITS/ML VIAL SQ SCH ×3 (06:05→23:09)
[2017-09-24 06:29] VITALS: BP 132/64; PULSE 68; RESP 18; TEMP 98.1; O2SAT 98
[2017-09-24 07:03] LABS: AUTOMATED NEUTROPHIL # 3.4 TH/MM3 (1.8-7.7); BASOPHIL % 0.3 % (0.0-2.0); EOSINOPHIL # 0.1 TH/MM3 (0-0.4); EOSINOPHIL % 2.5 % (0.0-4.0); HEMATOCRIT 32.9 % (35.0-46.0); LYMPH % 22.1 % (9.0-44.0); LYMPHOCYTE # 1.1 TH/MM3 (1.0-4.8); MEAN CELL VOLUME 93.5 FL (80.0-100.0); MEAN CORPUSCULAR HEMOGLOBIN 31.4 PG (27.0-34.0); MEAN CORPUSCULAR HGB CONC 33.6 % (32.0-36.0); MONO % 6.9 % (0.0-8.0); MONOCYTE # 0.3 TH/MM3 (0-0.9); NEUT % 68.2 % (16.0-70.0); PLATELET COUNT 146 TH/MM3 (150-450); RED BLOOD COUNT 3.52 MIL/MM3 (4.00-5.30); RED CELL DISTRIBUTION WIDTH 13.7 % (11.6-17.2)
[2017-09-24 07:13] LABS: CALCIUM 8.8 MG/DL (8.5-10.1); CREATININE 0.4 MG/DL (0.50-1.00)
[2017-09-24 08:00] VITALS: BP 150/87; PULSE 78; RESP 18; TEMP 97.4; O2SAT 99
[2017-09-24] MEDS: DOCUSATE SODIUM 50 MG/SENNA 8.6 MG TAB PO SCH ×2 (08:57→21:00)
[2017-09-24] MEDS: ONDANSETRON ODT 4 MG TAB PO PRN (08:57)
[2017-09-24] MEDS: SODIUM CHLORIDE 0.9% FLUSH 10 ML FLUSH IV FLUSH SCH ×2 (08:58→21:30)
[2017-09-24] MEDS: SODIUM CHLOR 0.9% 1000 ML INJ 1,000 ML IV SCH (08:58)
--- NOTE | 2017-09-24 10:44 | HHI.FPPN ---
Subjective Remarks Patient was seen and evaluated this morning. She feels better today. She continues to experience pain but says that overall her pain is well-controlled. She is tearful and had hoped to be discharged today. Patient denies chest pain, heart palpitations, shortness of breath, nausea/vomiting, diarrhea and constipation. All questions were answered. (Amber Wolff MD R1) Objective Vitals Vital Signs Date Time Temp Pulse Resp B/P (MAP) Pulse Ox O2 Delivery O2 Flow Rate FiO2 09/24/17 08:00 97.4 78 18 150/87 (108) 99 09/24/17 07:05 18 09/24/17 06:29 98.1 68 18 132/64 (86) 98 09/23/17 23:59 97.6 63 21 140/76 (97) 99 09/23/17 19:28 73 16 119/61 (80) 99 09/23/17 15:32 98.1 74 18 141/76 (97) 99 09/23/17 11:25 97.7 83 18 125/83 (97) 97 09/23/17 11:24 20 I/O 09/23/17 09/23/17 09/23/17 09/24/17 09/24/17 09/24/17 07:00 15:00 23:00 07:00 15:00 23:00 Intake Total 530 ml 300 ml 410 ml 1320 ml Balance 530 ml 300 ml 410 ml 1320 ml Intake Oral 480 ml 360 ml 240 ml IV Total 50 ml 300 ml 50 ml 1080 ml # Voids 2 2 3 (Amber Wolff MD R1) Result Diagram: 09/24/17 0545 09/24/17 0545 Imaging Last Impressions Pelvis CT 09/22/17 0000 Signed Impressions: CONCLUSION: 1. Subcutaneous inflammatory changes in left medial thigh extending to the lab ia. Objective Remarks GENERAL: Well-nourished, well-developed female lying in bed, in obvious distress. SKIN: Warm and moist. No rash. * L Buttocks: Left buttocks with large, palpable indurated area measuring larger than 10 cm in horizontal diameter with 1 cm circular opening with purulent material visualized and minimal drainage. Patient very tender to palpation along the buttocks. Area warm to palpation with small erythematous skin changes. No fluctuant areas appreciated for possible abscess formation. HEENT: Atraumatic, normocephalic with extraocular motions intact. No rhinorrhea. CARDIOVASCULAR: Tachycardic rate with regular rhythm. No obvious murmurs, gallops, or rubs. RESPIRATORY: No increased work of breathing. Clear to auscultation bilaterally with no crackles, wheezes, or rhonchi. GASTROINTESTINAL: Positive bowel sounds. Abdomen soft, non-tender, nondistended. No masses appreciated. MUSCULOSKELETAL: No cyanosis or edema. No calf tenderness. Ambulating favoring the left side due to pain without assistance. NEURO/PSYCH: Awake, alert, and oriented x3. Normal speech and judgement. Medications and IVs Current Medications Medications (Trade) Dose Ordered Sig/Helene Route Start Time Stop Time Status Last Admin (NS Flush) 2 ml BID IV FLUSH 09/23/17 09:00 09/23/17 21:24 (NS Flush) 2 ml UNSCH PRN IV FLUSH 09/22/17 23:30 Sodium Chloride 1,000 ml @ 90 mls/hr Q11H7M IV 09/22/17 23:21 09/24/17 08:58 Pharmacy Profile Note 0 ml @ 0 mls/hr UNSCH OTHER 09/22/17 23:30 (Tylenol) 500 mg Q4H PRN PO 09/22/17 23:30 09/23/17 21:25 (Toradol Inj) 30 mg Q6H IVP 09/22/17 23:30 09/27/17 23:29 09/24/17 06:05 (Heparin Inj) 5,000 units Q8H SQ 09/22/17 23:30 09/24/17 06:05 Piperacillin Sod/ Tazobactam Sod 50 ml @ 100 mls/hr Q6H IV 09/23/17 04:00 09/24/17 09:01 (Zofran Odt) 4 mg Q6H PRN PO 09/23/17 01:15 09/24/17 08:57 (Bessy-Colace) 1 tab BID PO 09/23/17 09:00 09/24/17 08:57 (Milk Of Magnesia Liq) 30 ml Q12H PRN PO 09/23/17 01:15 (Senokot) 17.2 mg Q12H PRN PO 09/23/17 01:15 (Dulcolax Supp) 10 mg DAILY PRN RECTAL 09/23/17 01:15 (Albuterol Neb) 2.5 mg Q6HR NEB PRN NEB 09/23/17 01:15 (Catapres) 0.1 mg Q6H PRN PO 09/23/17 01:15 Vancomycin HCl 1000 mg/Sodium Chloride 250 ml @ 250 mls/hr Q12H IV 09/23/17 21:00 09/23/17 21:24 [place] [place] Info) SPECIFIC LAB TO BE [place]... ONCE ONCE .XX 09/25/17 08:45 09/25/17 08:46 (Amber Wolff MD R1) Urinary Catheter: No (Amber Wolff MD R1) Vascular Central Line Catheter: No (Amber Wolff MD R1) A/P Assessment and Plan Patient is a 52-year-old female admitted for cellulitis secondary to failure of outpatient antibiotics. Discharge Planning Pending clinical improvement. (Amber Wolff MD R1) Problem List: (1) Sepsis ICD Codes: A41.9 - Sepsis, unspecified organism Status: Resolved Plan: On admission, patient met sepsis criteria with fever up to 100.3 after at home Tylenol dose with tachycardia up to 101 bpm. Likely source of infection left buttock cellulitis. Lactic acid 0.9. Resolved as of 09/23. (2) Cellulitis and abscess of buttock ICD Codes: L02.31 - Cutaneous abscess of buttock; L03.317 - Cellulitis of buttock Status: Acute Plan: Patient with cellulitis. Failed outpatient antibiotic treatment. Admission Labs: * WBC 11.2 with 80.5% neutrophils. * ESR: 60. Labs 09/24: * WBC 5.0 with 68.2% neutrophils. Microbiology: * Blood culture: no growth to date. * Wound culture pending. Imaging: * CT abdomen and pelvis 09/22: Large area of induration in the subcutaneous tissues of the left buttock that extend to the labia without defined fluid. Orders: * K thermia pad ordered. Medications: * Vancomycin and Zosyn given once in ED. * Vancomycin 1,000mg IV q12hrs. Pharmacy consulted. * Zosyn 3.375g IV q6hr. * Toradol 30 mg IV q6hr. * Tylenol as needed for fever. (3) Failure of outpatient treatment ICD Codes: Z78.9 - Other specified health status Status: Acute Plan: Patient admitted to failing outpatient therapy with clindamycin. (4) Nutrition, metabolism, and development symptoms ICD Codes: R63.8 - Other symptoms and signs concerning food and fluid intake Status: Acute Plan: Fluids: * Encourage PO intake. Diet: * Regular as tolerated. Electrolytes: * Monitor and replete as necessary. (5) DVT prophylaxis Status: Acute Plan: SCDs Medications: * Heparin 5000 units q8hr. (Amber Wolff MD R1) Problem List: (1) Sepsis ICD Codes: A41.9 - Sepsis, unspecified organism Status: Resolved Plan: On admission, patient met sepsis criteria with fever up to 100.3 after at home Tylenol dose with tachycardia up to 101 bpm. Likely source of infection left buttock cellulitis. Lactic acid 0.9. Resolved as of 09/23. (2) Cellulitis and abscess of buttock ICD Codes: L02.31 - Cutaneous abscess of buttock; L03.317 - Cellulitis of buttock Status: Acute Plan: Patient with cellulitis. Failed outpatient antibiotic treatment. Admission Labs: * WBC 11.2 with 80.5% neutrophils. * ESR: 60. Labs 09/24: * WBC 5.0 with 68.2% neutrophils. Microbiology: * Blood culture: no growth to date. * Wound culture pending. Imaging: * CT abdomen and pelvis 09/22: Large area of induration in the subcutaneous tissues of the left buttock that extend to the labia without defined fluid. Orders: * K thermia pad ordered. Medications: * Vancomycin and Zosyn given once in ED. * Vancomycin 1,000mg IV q12hrs. Pharmacy consulted. * Zosyn 3.375g IV q6hr. * Toradol 30 mg IV q6hr. * Tylenol as needed for fever. (3) Failure of outpatient treatment ICD Codes: Z78.9 - Other specified health status Status: Acute Plan: Patient admitted to failing outpatient therapy with clindamycin. (4) Nutrition, metabolism, and development symptoms ICD Codes: R63.8 - Other symptoms and signs concerning food and fluid intake Status: Acute Plan: Fluids: * Encourage PO intake. Diet: * Regular as tolerated. Electrolytes: * Monitor and replete as necessary. (5) DVT prophylaxis Status: Acute Plan: SCDs Medications: * Heparin 5000 units q8hr. See the residents documentation for details. I saw and evaluated the patient regarding the martinez portions of this evaluation and agree with the residents findings and plans as written. Parts of this note were created using [employer] voice recognition software program. While efforts were made to correct any mistakes made by this software, some mistakes, errors, and omissions may remain in the final note that were not caught when the note was originally created. Plan of care was discussed and agreed upon with the patient as specifically documented in the above note. An opportunity to ask questions with explanation was provided. Patient voiced understanding on all information reviewed and discussed. (Nick Weeks MD) Problem Qualifiers (1) Sepsis: Qualified Codes: A41.9 - Sepsis, unspecified organism Amber Wolff MD R1 Sep 24, 2017 10:44 Nick Weeks MD Sep 24, 2017 12:18
[2017-09-24] MEDS: VANCOMYCIN 1,000 MG/NS 250 ML IV SCH ×4 (11:16→21:30)
[2017-09-24 12:56] VITALS: BP 139/77; PULSE 74; RESP 16; TEMP 98.3; O2SAT 98
--- NOTE | 2017-09-24 14:38 | PD.WCN.NOT ---
Wound Consult Description: wound consult ordered by Dr.Labell Perez for wound management. Communicated with: Ann HERNANDEZ, Recommendation: 1. Cleanse intra gluteal cleft and perineum with Remedy soft cloth barrier wipes pat dry. 2. Apply Maxorb cut to fit wound base to right intra gluteal cleft open abscess, then cover with dry 2x2 gauze secure with boarder gauze sign and date change dressing every 3 days or as needed for exudate management/dislodgement. 3. Keep indurated area to Right groin/labia clean and dry. 4. Reconsult wound care if treatment fails or wounds worsen. Additional Information: Patient was seen today by screen writer and Ann HERNANDEZ F-pod for wound management.Patient alert and oriented x4 with no current complaints of acute distress/discomfort.Patient was able to independently reposition self to right side.Super[facility] [employer] removed dressing to right buttocks with out difficulty.Intra gluteal cleft and perineum/groin cleansed with remedy soft clothe barrier wipes air dried.Patient has open actively draining abscess located on Right distal gluteal cleft measuring ~2.5cm x1.5cm x 0.2 wound base is 90% moist pink non granular tissue 10% fascia.Wound edges are well defined and sloped with wound base circular in shape.Periwound intact mild erythema noted blanchable to touch.Moderate serosanguineous exudate noted with out odor.Patient has reddened/ tender indurated area to right groin/labia which is warm to touch.No drainage or odor noted.Patient currently receiving antibiotic treatment but may need I&D if induration does not resolve.Patient does state tenderness has decrease in last 24 hours.Maxorb ll cut to fit wound base applied to open abscess and covered with dry 2x2 gauze secured with boarder gauze dressing signed and dated. Eric Bush [facility] Sep 24, 2017 14:38
[2017-09-24 16:00] VITALS: BP 128/81; PULSE 76; RESP 20; TEMP 97.9; O2SAT 96
[2017-09-24 20:00] VITALS: BP 140/78; PULSE 81; RESP 17; TEMP 98; O2SAT 97
[2017-09-25] VITALS: BP 136/75; PULSE 69; RESP 16; TEMP 97.3; O2SAT 98
[2017-09-25 04:00] VITALS: BP 147/81; PULSE 63; RESP 15; TEMP 97.5; O2SAT 98
[2017-09-25] MEDS: PIPERACIL-TAZO 3.375 GM PREMIX 50 ML IV SCH ×4 (05:27→22:56)
[2017-09-25] MEDS: KETOROLAC TROMETHAMINE 30 MG/ML (IVP) VIAL IVP SCH ×4 (05:28→22:56)
[2017-09-25] MEDS: ONDANSETRON ODT 4 MG TAB PO PRN (06:04)
[2017-09-25] MEDS: HEPARIN SODIUM - SQ 10,000 UNITS/ML VIAL SQ SCH ×3 (08:17→22:58)
[2017-09-25 08:37] VITALS: BP 127/77; PULSE 64; RESP 18; TEMP 98; O2SAT 97
[2017-09-25] MEDS ORDERED: PHARMACY ORDERED LAB ONE (08:45)
[2017-09-25] MEDS: DOCUSATE SODIUM 50 MG/SENNA 8.6 MG TAB PO SCH ×2 (09:23→20:51)
[2017-09-25] MEDS: SODIUM CHLORIDE 0.9% FLUSH 10 ML FLUSH IV FLUSH SCH ×2 (09:23→20:51)
[2017-09-25] MEDS: VANCOMYCIN 1,000 MG/NS 250 ML IV SCH ×2 (09:23)
--- NOTE | 2017-09-25 10:42 | HHI.FPPN ---
Subjective Remarks Patient was seen and evaluated this morning. She feels better; her pain is well- controlled. Patient denies chest pain, heart palpitations, shortness of breath, nausea/vomiting, diarrhea and constipation. All questions were answered. (Amber Wolff MD R1) Objective Vitals Vital Signs Date Time Temp Pulse Resp B/P (MAP) Pulse Ox O2 Delivery O2 Flow Rate FiO2 09/25/17 08:37 98.0 64 18 127/77 (94) 97 09/25/17 04:00 97.5 63 15 147/81 (103) 98 09/25/17 00:00 97.3 69 16 136/75 (95) 98 09/24/17 20:00 98.0 81 17 140/78 (98) 97 09/24/17 16:00 97.9 76 20 128/81 (97) 96 09/24/17 12:56 98.3 74 16 139/77 (97) 98 I/O 09/24/17 09/24/17 09/24/17 09/25/17 09/25/17 09/25/17 07:00 15:00 23:00 07:00 15:00 23:00 Intake Total 1320 ml 300 ml 250 ml 650 ml 250 ml Balance 1320 ml 300 ml 250 ml 650 ml 250 ml Intake Oral 240 ml 650 ml IV Total 1080 ml 300 ml 250 ml 250 ml # Voids 3 2 3 (Amber Wolff MD R1) Result Diagram: 09/24/17 0545 09/24/17 0545 Imaging Last Impressions Pelvis CT 09/22/17 0000 Signed Impressions: CONCLUSION: 1. Subcutaneous inflammatory changes in left medial thigh extending to the lab ia. Objective Remarks GENERAL: Well-nourished, well-developed female lying in bed, in obvious distress. SKIN: Warm and moist. No rash. * L Buttocks: Left buttocks with palpable indurated area extending via tract to labial area. Left buttocks also with a 1 cm circular opening with purulent material visualized and minimal drainage. Patient tender to palpation along the buttocks as well as the inguinal and labial area. Tender lymphadenopathy appreciated in the inguinal area. Erythematous skin changes resolved. HEENT: Atraumatic, normocephalic with extraocular motions intact. No rhinorrhea. CARDIOVASCULAR: Regular rate rhythm. No obvious murmurs, gallops, or rubs. RESPIRATORY: No increased work of breathing. Clear to auscultation bilaterally with no crackles, wheezes, or rhonchi. GASTROINTESTINAL: Positive bowel sounds. Abdomen soft, non-tender, nondistended. No masses appreciated. MUSCULOSKELETAL: No cyanosis or edema. No calf tenderness. Ambulating favoring the left side due to pain without assistance. NEURO/PSYCH: Awake, alert, and oriented x3. Normal speech and judgement. Medications and IVs Current Medications Medications (Trade) Dose Ordered Sig/Helene Route Start Time Stop Time Status Last Admin (NS Flush) 2 ml BID IV FLUSH 09/23/17 09:00 09/25/17 09:23 (NS Flush) 2 ml UNSCH PRN IV FLUSH 09/22/17 23:30 09/24/17 23:10 Pharmacy Profile Note 0 ml @ 0 mls/hr UNSCH OTHER 09/22/17 23:30 (Tylenol) 500 mg Q4H PRN PO 09/22/17 23:30 09/23/17 21:25 (Toradol Inj) 30 mg Q6H IVP 09/22/17 23:30 09/27/17 23:29 09/25/17 05:28 (Heparin Inj) 5,000 units Q8H SQ 09/22/17 23:30 09/25/17 08:17 Piperacillin Sod/ Tazobactam Sod 50 ml @ 100 mls/hr Q6H IV 09/23/17 04:00 09/25/17 10:24 (Zofran Odt) 4 mg Q6H PRN PO 09/23/17 01:15 09/25/17 06:04 (Bessy-Colace) 1 tab BID PO 09/23/17 09:00 09/25/17 09:23 (Milk Of Magnesia Liq) 30 ml Q12H PRN PO 09/23/17 01:15 (Senokot) 17.2 mg Q12H PRN PO 09/23/17 01:15 (Dulcolax Supp) 10 mg DAILY PRN RECTAL 09/23/17 01:15 (Albuterol Neb) 2.5 mg Q6HR NEB PRN NEB 09/23/17 01:15 (Catapres) 0.1 mg Q6H PRN PO 09/23/17 01:15 Vancomycin HCl 1250 mg/Sodium Chloride 262.5 ml @ 262.5 mls/ hr Q12H IV 09/25/17 20:00 ([facility] [place] [facility] Ordered Lab Info) SPECIFIC LAB TO BE ... ONCE ONCE .XX 09/27/17 07:45 09/27/17 07:46 (Amber Wolff MD R1) Urinary Catheter: No (Amber Wolff MD R1) Vascular Central Line Catheter: No (Amber Wolff MD R1) A/P Assessment and Plan Patient is a 52-year-old female admitted for cellulitis secondary to failure of outpatient antibiotics. Discharge Planning Pending clinical improvement. (Amber Wolff MD R1) Problem List: (1) Sepsis ICD Codes: A41.9 - Sepsis, unspecified organism Status: Resolved Plan: On admission, patient met sepsis criteria with fever up to 100.3 after at home Tylenol dose with tachycardia up to 101 bpm. Likely source of infection left buttock cellulitis. Lactic acid 0.9. Resolved as of 09/23. (2) Cellulitis and abscess of buttock ICD Codes: L02.31 - Cutaneous abscess of buttock; L03.317 - Cellulitis of buttock Status: Acute Plan: Patient with cellulitis. Failed outpatient antibiotic treatment. Clinically improving. Admission Labs: * WBC 11.2 with 80.5% neutrophils. * ESR: 60. Labs 09/24: * WBC 5.0 with 68.2% neutrophils. Labs 09/25: * pending. Microbiology: * Blood culture: no growth to date. * Wound culture pending. Imaging: * CT abdomen and pelvis 09/22: Large area of induration in the subcutaneous tissues of the left buttock that extend to the labia without defined fluid. Orders: * K thermia pad ordered. Medications: * Vancomycin and Zosyn given once in ED. * Vancomycin 1,000mg IV q12hrs. Pharmacy consulted. * Zosyn 3.375g IV q6hr. * Toradol 30 mg IV q6hr. * Tylenol as needed for fever. Consults: * Wound Care: Cleanse intra gluteal cleft and perineum with Remedy soft cloth barrier wipes pat dry. Apply Maxorb cut to fit wound base to right intra gluteal cleft open abscess, then cover with dry 2x2 gauze secure with boarder gauze sign and date change dressing every 3 days or as needed for exudate management/dislodgement. Keep indurated area to right groin/labia clean and dry. Reconsult wound care if treatment fails or wounds worsen. * General surgery. Awaiting recommendations. (3) Failure of outpatient treatment ICD Codes: Z78.9 - Other specified health status Status: Acute Plan: Patient admitted to failing outpatient therapy with clindamycin. (4) Nutrition, metabolism, and development symptoms ICD Codes: R63.8 - Other symptoms and signs concerning food and fluid intake Status: Acute Plan: Fluids: * Encourage PO intake. Diet: * Regular as tolerated. Electrolytes: * Monitor and replete as necessary. (5) DVT prophylaxis Status: Acute Plan: SCDs Medications: * Heparin 5000 units q8hr. (Amber Wolff MD R1) Problem List: (1) Sepsis ICD Codes: A41.9 - Sepsis, unspecified organism Status: Resolved Plan: On admission, patient met sepsis criteria with fever up to 100.3 after at home Tylenol dose with tachycardia up to 101 bpm. Likely source of infection left buttock cellulitis. Lactic acid 0.9. Resolved as of 09/23. (2) Cellulitis and abscess of buttock ICD Codes: L02.31 - Cutaneous abscess of buttock; L03.317 - Cellulitis of buttock Status: Acute Plan: Patient with cellulitis. Failed outpatient antibiotic treatment. Clinically improving. Admission Labs: * WBC 11.2 with 80.5% neutrophils. * ESR: 60. Labs 09/24: * WBC 5.0 with 68.2% neutrophils. Labs 09/25: * pending. Microbiology: * Blood culture: no growth to date. * Wound culture pending. Imaging: * CT abdomen and pelvis 09/22: Large area of induration in the subcutaneous tissues of the left buttock that extend to the labia without defined fluid. Orders: * K thermia pad ordered. Medications: * Vancomycin and Zosyn given once in ED. * Vancomycin 1,000mg IV q12hrs. Pharmacy consulted. * Zosyn 3.375g IV q6hr. * Toradol 30 mg IV q6hr. * Tylenol as needed for fever. Consults: * Wound Care: Cleanse intra gluteal cleft and perineum with Remedy soft cloth barrier wipes pat dry. Apply Maxorb cut to fit wound base to right intra gluteal cleft open abscess, then cover with dry 2x2 gauze secure with boarder gauze sign and date change dressing every 3 days or as needed for exudate management/dislodgement. Keep indurated area to right groin/labia clean and dry. Reconsult wound care if treatment fails or wounds worsen. * General surgery. Awaiting recommendations. (3) Failure of outpatient treatment ICD Codes: Z78.9 - Other specified health status Status: Acute Plan: Patient admitted to failing outpatient therapy with clindamycin. (4) Nutrition, metabolism, and development symptoms ICD Codes: R63.8 - Other symptoms and signs concerning food and fluid intake Status: Acute Plan: Fluids: * Encourage PO intake. Diet: * Regular as tolerated. Electrolytes: * Monitor and replete as necessary. (5) DVT prophylaxis Status: Acute Plan: SCDs Medications: * Heparin 5000 units q8hr. * See the residents documentation for details. I saw and evaluated the patient regarding the martinez portions of this evaluation and agree with the residents findings and plans as written. Parts of this note were created using [employer] voice recognition software program. While efforts were made to correct any mistakes made by this software, some mistakes, errors, and omissions may remain in the final note that were not caught when the note was originally created. Plan of care was discussed and agreed upon with the patient as specifically documented in the above note. An opportunity to ask questions with explanation was provided. Patient voiced understanding on all information reviewed and discussed. (Nick Weeks MD) Problem Qualifiers (1) Sepsis: Qualified Codes: A41.9 - Sepsis, unspecified organism Amber Wolff MD R1 Sep 25, 2017 10:42 Nick Weeks MD Sep 28, 2017 14:06
[2017-09-25 12:21] LABS: AUTOMATED NEUTROPHIL # 1.7 TH/MM3 (1.8-7.7); BASOPHIL % 0.7 % (0.0-2.0); EOSINOPHIL # 0.1 TH/MM3 (0-0.4); EOSINOPHIL % 2.8 % (0.0-4.0); HEMATOCRIT 32.1 % (35.0-46.0); HEMOGLOBIN 10.7 GM/DL (11.6-15.3); LYMPH % 33.2 % (9.0-44.0); MEAN CELL VOLUME 93.5 FL (80.0-100.0); MEAN CORPUSCULAR HEMOGLOBIN 31.3 PG (27.0-34.0); MEAN CORPUSCULAR HGB CONC 33.5 % (32.0-36.0); MEAN PLATELET VOLUME 8.6 FL (7.0-11.0); MONO % 9.9 % (0.0-8.0); MONOCYTE # 0.3 TH/MM3 (0-0.9); NEUT % 53.4 % (16.0-70.0); PLATELET COUNT 159 TH/MM3 (150-450); RED BLOOD COUNT 3.43 MIL/MM3 (4.00-5.30); WHITE BLOOD COUNT 3.1 TH/MM3 (4.0-11.0)
[2017-09-25 12:32] VITALS: BP 153/86; PULSE 76; RESP 18; TEMP 97.5; O2SAT 100
[2017-09-25 13:06] LABS: BICARBONATE 25.8 MEQ/L (21.0-32.0); CALCIUM 8.6 MG/DL (8.5-10.1); CREATININE 0.45 MG/DL (0.50-1.00)
[2017-09-25 16:43] VITALS: BP 144/73; PULSE 68; RESP 18; TEMP 97.6; O2SAT 98
--- NOTE | 2017-09-25 19:39 | PD.CAR.PN ---
CVT Progress Note Subjective/Hospital Course: 52-year-old female with about a week pain in her left buttock area and left groin Patient states that she was initially placed on antibiotics but now things got worse Physical examination reveals a draining area of the left buttock which might have been a bite of some sort of the time and then indurated area alongside the left inner thigh toward the labia This is sort of diffuse cellulitis and phlegmon and not a fluctuant area that would be drainable At this point patient try warm compresses, antibiotics and analgesia so this will go either of 2 ways. First possibility is that when antibiotics and local care the whole thing is going to slowly dissolve and disappear soft not and patient will be discharged. More likely however this cellulitis will shrink down and finally form a fluctuant area that can be drained I will follow the patient and as soon as I see that this is fluctuant I will take her to the OR and drain at Considering that this is acute, I do not suspect anything but the infection at this time however, you never know and I will have some tissue sent for biopsy just in case We will follow Objective: Vital Signs Date Time Temp Pulse Resp B/P (MAP) Pulse Ox O2 Delivery O2 Flow Rate FiO2 09/25/17 16:43 97.6 68 18 144/73 (96) 98 09/25/17 12:32 97.5 76 18 153/86 (108) 100 09/25/17 12:26 16 09/25/17 08:37 98.0 64 18 127/77 (94) 97 09/25/17 04:00 97.5 63 15 147/81 (103) 98 09/25/17 00:00 97.3 69 16 136/75 (95) 98 09/24/17 20:00 98.0 81 17 140/78 (98) 97 Labs: Laboratory Tests Test 09/25/17 08:30 09/25/17 11:26 Vancomycin Level Trough 4.8 MCG/ML (5.0-10.0) White Blood Count 3.1 TH/MM3 (4.0-11.0) Red Blood Count 3.43 MIL/MM3 (4.00-5.30) Hemoglobin 10.7 GM/DL (11.6-15.3) Hematocrit 32.1 % (35.0-46.0) Mean Corpuscular Volume 93.5 FL (80.0-100.0) Mean Corpuscular Hemoglobin 31.3 PG (27.0-34.0) Mean Corpuscular Hemoglobin Concent 33.5 % (32.0-36.0) Red Cell Distribution Width 14.0 % (11.6-17.2) Platelet Count 159 TH/MM3 (150-450) Mean Platelet Volume 8.6 FL (7.0-11.0) Neutrophils (%) (Auto) 53.4 % (16.0-70.0) Lymphocytes (%) (Auto) 33.2 % (9.0-44.0) Monocytes (%) (Auto) 9.9 % (0.0-8.0) Eosinophils (%) (Auto) 2.8 % (0.0-4.0) Basophils (%) (Auto) 0.7 % (0.0-2.0) Neutrophils # (Auto) 1.7 TH/MM3 (1.8-7.7) Lymphocytes # (Auto) 1.0 TH/MM3 (1.0-4.8) Monocytes # (Auto) 0.3 TH/MM3 (0-0.9) Eosinophils # (Auto) 0.1 TH/MM3 (0-0.4) Basophils # (Auto) 0.0 TH/MM3 (0-0.2) CBC Comment DIFF FINAL Differential Comment Blood Urea Nitrogen 16 MG/DL (7-18) Creatinine 0.45 MG/DL (0.50-1.00) Random Glucose 87 MG/DL (74-106) Calcium Level 8.6 MG/DL (8.5-10.1) Sodium Level 145 MEQ/L (136-145) Potassium Level 3.8 MEQ/L (3.5-5.1) Chloride Level 111 MEQ/L (98-107) Carbon Dioxide Level 25.8 MEQ/L (21.0-32.0) Anion Gap 8 MEQ/L (5-15) Estimat Glomerular Filtration Rate 147 ML/MIN (>89) Result Diagram: 09/25/17 1126 09/25/17 1126 Lizeth Lopez MD Sep 25, 2017 19:39
[2017-09-25 20:00] VITALS: BP 137/69; PULSE 76; RESP 19; TEMP 97.6; O2SAT 98
[2017-09-25] MEDS: VANCOMYCIN INJ 1,250 MG in SODIUM CHLOR 0.9% 250 ML INJ 250 ML IV SCH (20:51)
[2017-09-26] VITALS: BP 124/73; PULSE 75; RESP 18; TEMP 97.2; O2SAT 97
[2017-09-26 04:00] VITALS: BP 129/69; PULSE 63; RESP 17; TEMP 97.4; O2SAT 97
[2017-09-26] MEDS: PIPERACIL-TAZO 3.375 GM PREMIX 50 ML IV SCH (04:55)
[2017-09-26] MEDS: KETOROLAC TROMETHAMINE 30 MG/ML (IVP) VIAL IVP SCH ×3 (04:56→17:25)
[2017-09-26] MEDS: DOCUSATE SODIUM 50 MG/SENNA 8.6 MG TAB PO SCH ×2 (08:22→21:00)
[2017-09-26] MEDS: HEPARIN SODIUM - SQ 10,000 UNITS/ML VIAL SQ SCH ×2 (08:22→17:27)
[2017-09-26] MEDS: VANCOMYCIN INJ 1,250 MG in SODIUM CHLOR 0.9% 250 ML INJ 250 ML IV SCH (08:23)
[2017-09-26] MEDS: SODIUM CHLORIDE 0.9% FLUSH 10 ML FLUSH IV FLUSH SCH ×2 (08:23→21:25)
[2017-09-26 08:39] VITALS: BP 153/76; PULSE 71; RESP 18; TEMP 97.8; O2SAT 97
[2017-09-26 11:09] LABS: HEMATOCRIT 35.4 % (35.0-46.0); HEMOGLOBIN 11.7 GM/DL (11.6-15.3); MEAN CELL VOLUME 94.1 FL (80.0-100.0); MEAN CORPUSCULAR HEMOGLOBIN 30.9 PG (27.0-34.0); MEAN CORPUSCULAR HGB CONC 32.9 % (32.0-36.0); MEAN PLATELET VOLUME 8.9 FL (7.0-11.0); PLATELET COUNT 187 TH/MM3 (150-450); RED BLOOD COUNT 3.77 MIL/MM3 (4.00-5.30); RED CELL DISTRIBUTION WIDTH 13.7 % (11.6-17.2); WHITE BLOOD COUNT 3.9 TH/MM3 (4.0-11.0)
[2017-09-26 11:29] LABS: BICARBONATE 26.7 MEQ/L (21.0-32.0); CALCIUM 8.9 MG/DL (8.5-10.1); CREATININE 0.5 MG/DL (0.50-1.00)
[2017-09-26 12:10] VITALS: BP 142/89; PULSE 77; RESP 18; TEMP 98; O2SAT 97
--- NOTE | 2017-09-26 12:15 | PD.CAR.PN ---
CVT Progress Note Subjective/Hospital Course: 52-year-old female with about a week pain in her left buttock area and left groin Patient states that she was initially placed on antibiotics but now things got worse Physical examination reveals a draining area of the left buttock which might have been a bite of some sort of the time and then indurated area alongside the left inner thigh toward the labia This is sort of diffuse cellulitis and phlegmon and not a fluctuant area that would be drainable At this point patient try warm compresses, antibiotics and analgesia so this will go either of 2 ways. First possibility is that when antibiotics and local care the whole thing is going to slowly dissolve and disappear soft not and patient will be discharged. More likely however this cellulitis will shrink down and finally form a fluctuant area that can be drained I will follow the patient and as soon as I see that this is fluctuant I will take her to the OR and drain at Considering that this is acute, I do not suspect anything but the infection at this time however, you never know and I will have some tissue sent for biopsy just in case We will follow 09/26/2017 Patient with a cellulitis and swelling of the left buttock Area still not fluctuant but is sort of indurated Would allow antibiotics to work for another day or 2 and will take patient to the operating room for examined stirrups and I&D on Thursday Objective: Vital Signs Date Time Temp Pulse Resp B/P (MAP) Pulse Ox O2 Delivery O2 Flow Rate FiO2 09/26/17 12:10 98.0 77 18 142/89 (106) 97 09/26/17 08:39 97.8 71 18 153/76 (101) 97 09/26/17 04:00 97.4 63 17 129/69 (89) 97 09/26/17 00:00 97.2 75 18 124/73 (90) 97 09/25/17 20:00 97.6 76 19 137/69 (91) 98 09/25/17 16:43 97.6 68 18 144/73 (96) 98 09/25/17 12:32 97.5 76 18 153/86 (108) 100 09/25/17 12:26 16 Labs: Laboratory Tests Test 09/26/17 09:40 White Blood Count 3.9 TH/MM3 (4.0-11.0) Red Blood Count 3.77 MIL/MM3 (4.00-5.30) Hemoglobin 11.7 GM/DL (11.6-15.3) Hematocrit 35.4 % (35.0-46.0) Mean Corpuscular Volume 94.1 FL (80.0-100.0) Mean Corpuscular Hemoglobin 30.9 PG (27.0-34.0) Mean Corpuscular Hemoglobin Concent 32.9 % (32.0-36.0) Red Cell Distribution Width 13.7 % (11.6-17.2) Platelet Count 187 TH/MM3 (150-450) Mean Platelet Volume 8.9 FL (7.0-11.0) Blood Urea Nitrogen 14 MG/DL (7-18) Creatinine 0.50 MG/DL (0.50-1.00) Random Glucose 96 MG/DL (74-106) Calcium Level 8.9 MG/DL (8.5-10.1) Sodium Level 145 MEQ/L (136-145) Potassium Level 4.2 MEQ/L (3.5-5.1) Chloride Level 109 MEQ/L (98-107) Carbon Dioxide Level 26.7 MEQ/L (21.0-32.0) Anion Gap 9 MEQ/L (5-15) Estimat Glomerular Filtration Rate 131 ML/MIN (>89) Result Diagram: 09/26/17 0940 09/26/17 0940 Lizeth Lopez MD Sep 26, 2017 12:15
[2017-09-26] MEDS: CLINDAMYCIN 150 MG CAP PO SCH ×2 (14:25→19:25)
[2017-09-26 16:39] VITALS: BP 140/76; PULSE 69; RESP 18; TEMP 97.9; O2SAT 98
--- NOTE | 2017-09-26 17:27 | HHI.FPPN ---
Subjective Remarks Patient was seen and evaluated this morning. She reports feeling better. Patient denies chest pain, heart palpitations, shortness of breath, nausea/ vomiting, diarrhea and constipation. All questions were answered. (Amber Wolff MD R1) Objective Vitals Vital Signs Date Time Temp Pulse Resp B/P (MAP) Pulse Ox O2 Delivery O2 Flow Rate FiO2 09/26/17 16:39 97.9 69 18 140/76 (97) 98 09/26/17 12:10 98.0 77 18 142/89 (106) 97 09/26/17 12:00 18 09/26/17 08:39 97.8 71 18 153/76 (101) 97 09/26/17 04:00 97.4 63 17 129/69 (89) 97 09/26/17 00:00 97.2 75 18 124/73 (90) 97 09/25/17 20:00 97.6 76 19 137/69 (91) 98 I/O 09/25/17 09/25/17 09/25/17 09/26/17 09/26/17 09/26/17 07:00 15:00 23:00 07:00 15:00 23:00 Intake Total 650 ml 250 ml Balance 650 ml 250 ml Intake Oral 650 ml IV Total 250 ml # Voids 3 (Amber Wolff MD R1) Result Diagram: 09/26/17 0940 09/26/17 0940 Imaging Last Impressions Pelvis CT 09/22/17 0000 Signed Impressions: CONCLUSION: 1. Subcutaneous inflammatory changes in left medial thigh extending to the lab ia. Objective Remarks GENERAL: Well-nourished, well-developed female lying in bed, in obvious distress. SKIN: Warm and moist. No rash. * L Buttocks: Left buttocks with palpable indurated area extending via tract to labial area. Left buttocks also with a 1 cm circular opening with purulent material visualized and minimal drainage. Patient tender to palpation along the buttocks as well as the inguinal and labial area. Tender lymphadenopathy appreciated in the inguinal area. Erythematous skin changes resolved. HEENT: Atraumatic, normocephalic with extraocular motions intact. No rhinorrhea. CARDIOVASCULAR: Regular rate rhythm. No obvious murmurs, gallops, or rubs. RESPIRATORY: No increased work of breathing. Clear to auscultation bilaterally with no crackles, wheezes, or rhonchi. GASTROINTESTINAL: Positive bowel sounds. Abdomen soft, non-tender, nondistended. No masses appreciated. MUSCULOSKELETAL: No cyanosis or edema. No calf tenderness. Ambulating favoring the left side due to pain without assistance. NEURO/PSYCH: Awake, alert, and oriented x3. Normal speech and judgement. Medications and IVs Current Medications Medications (Trade) Dose Ordered Sig/Helene Route Start Time Stop Time Status Last Admin (NS Flush) 2 ml BID IV FLUSH 09/23/17 09:00 09/26/17 08:23 (NS Flush) 2 ml UNSCH PRN IV FLUSH 09/22/17 23:30 09/24/17 23:10 (Tylenol) 500 mg Q4H PRN PO 09/22/17 23:30 09/23/17 21:25 (Toradol Inj) 30 mg Q6H IVP 09/22/17 23:30 09/27/17 23:29 09/26/17 17:25 (Heparin Inj) 5,000 units Q8H SQ 09/22/17 23:30 09/26/17 17:27 (Zofran Odt) 4 mg Q6H PRN PO 09/23/17 01:15 09/25/17 06:04 (Bessy-Colace) 1 tab BID PO 09/23/17 09:00 09/26/17 08:22 (Milk Of Magnesia Liq) 30 ml Q12H PRN PO 09/23/17 01:15 (Senokot) 17.2 mg Q12H PRN PO 09/23/17 01:15 (Dulcolax Supp) 10 mg DAILY PRN RECTAL 09/23/17 01:15 (Albuterol Neb) 2.5 mg Q6HR NEB PRN NEB 09/23/17 01:15 (Catapres) 0.1 mg Q6H PRN PO 09/23/17 01:15 (Cleocin) 450 mg Q6HR PO 09/26/17 12:00 09/26/17 19:25 (Amber Wolff MD R1) Urinary Catheter: No (Amber Wolff MD R1) Vascular Central Line Catheter: No (Amber Wolff MD R1) A/P Assessment and Plan Patient is a 52-year-old female admitted for cellulitis secondary to failure of outpatient antibiotics. Discharge Planning Likely tomorrow. (Amber Wolff MD R1) Attending Attestation Patient seen and examined. Case reviewed and discussed with the resident team. Agree with plan of care as discussed with me and documented in the resident note. will change to po for one day and be sure this is tolerated (Katt Brown MD) Problem List: (1) Sepsis ICD Codes: A41.9 - Sepsis, unspecified organism Status: Resolved Plan: On admission, patient met sepsis criteria with fever up to 100.3 after at home Tylenol dose with tachycardia up to 101 bpm. Likely source of infection left buttock cellulitis. Lactic acid 0.9. Resolved as of 09/23. (2) Cellulitis and abscess of buttock ICD Codes: L02.31 - Cutaneous abscess of buttock; L03.317 - Cellulitis of buttock Status: Acute Plan: Patient with cellulitis. Failed outpatient antibiotic treatment. Clinically improving. Admission Labs: * WBC 11.2 with 80.5% neutrophils. * ESR: 60. Labs 09/26: * WBC 3.9. Microbiology: * Blood culture: no growth to date. * Wound culture: MRSA. Sensitivities available. Imaging: * CT abdomen and pelvis 09/22: Large area of induration in the subcutaneous tissues of the left buttock that extend to the labia without defined fluid. Orders: * K thermia pad ordered. Medications: * Clindamycin 450mg PO q6hr. * Toradol 30 mg IV q6hr. * Tylenol as needed for fever. Consults: * Wound Care: Cleanse intra gluteal cleft and perineum with Remedy soft cloth barrier wipes pat dry. Apply Maxorb cut to fit wound base to right intra gluteal cleft open abscess, then cover with dry 2x2 gauze secure with boarder gauze sign and date change dressing every 3 days or as needed for exudate management/dislodgement. Keep indurated area to right groin/labia clean and dry. Reconsult wound care if treatment fails or wounds worsen. * General surgery. No drainable abscess at this time. (3) Failure of outpatient treatment ICD Codes: Z78.9 - Other specified health status Status: Acute Plan: Patient admitted to failing outpatient therapy with clindamycin. (4) Nutrition, metabolism, and development symptoms ICD Codes: R63.8 - Other symptoms and signs concerning food and fluid intake Status: Acute Plan: Fluids: * Encourage PO intake. Diet: * Regular as tolerated. Electrolytes: * Monitor and replete as necessary. (5) DVT prophylaxis Status: Acute Plan: SCDs Medications: * Heparin 5000 units q8hr. (Amber Wolff MD R1) Problem Qualifiers (1) Sepsis: Qualified Codes: A41.9 - Sepsis, unspecified organism Amber Wolff MD R1 Sep 26, 2017 17:27 Katt Brown MD Sep 27, 2017 16:14
[2017-09-26 20:00] VITALS: BP 135/73; PULSE 75; RESP 17; TEMP 97.9; O2SAT 96
[2017-09-27] VITALS: BP 115/69; PULSE 61; RESP 16; TEMP 98.1; O2SAT 97
[2017-09-27] MEDS: CLINDAMYCIN 150 MG CAP PO SCH ×2 (00:10→06:36)
[2017-09-27] MEDS: HEPARIN SODIUM - SQ 10,000 UNITS/ML VIAL SQ SCH ×2 (00:12→06:35)
[2017-09-27] MEDS: KETOROLAC TROMETHAMINE 30 MG/ML (IVP) VIAL IVP SCH ×2 (00:14→06:36)
[2017-09-27 04:00] VITALS: BP 129/72; PULSE 67; RESP 16; TEMP 98; O2SAT 97
[2017-09-27] MEDS ORDERED: PHARMACY ORDERED LAB ONE (07:45)
[2017-09-27] MEDS: SODIUM CHLORIDE 0.9% FLUSH 10 ML FLUSH IV FLUSH SCH (08:03)
[2017-09-27] MEDS: DOCUSATE SODIUM 50 MG/SENNA 8.6 MG TAB PO SCH (08:03)
[2017-09-27 08:34] VITALS: BP 133/88; PULSE 76; RESP 18; TEMP 97.9; O2SAT 97
[2017-09-27] MEDS ORDERED: CLIN150 PO (11:18)
--- NOTE | 2017-09-27 11:19 | HHI.DCPOC ---
Discharge Care Plan Diagnosis: (1) Cellulitis and abscess of buttock (2) Sepsis (3) Failure of outpatient treatment Goals to Promote Your Health * To prevent worsening of your condition and complications * To maintain your health at the optimal level Directions to Meet Your Goals Take your medications as prescribed Follow your dietary instruction Follow activity as directed Keep your appointments as scheduled Take your immunizations and boosters as scheduled If your symptoms worsen call your PCP, if no PCP go to Urgent Care Center or Emergency Room Smoking is Dangerous to Your Health. Avoid second hand smoke Call the 24-hour hour crisis hotline for domestic abuse at Amber Wolff MD R1 Sep 27, 2017 11:19
--- NOTE | 2017-09-27 11:25 | HHI.FPPN ---
Subjective Remarks Patient was seen and evaluated this morning. She feels great and is ready to go home. Patient denies chest pain, heart palpitations, shortness of breath, nausea /vomiting, diarrhea and constipation. All questions were answered. (Amber Wolff MD R1) Objective Vitals Vital Signs Date Time Temp Pulse Resp B/P (MAP) Pulse Ox O2 Delivery O2 Flow Rate FiO2 09/27/17 08:34 97.9 76 18 133/88 (103) 97 09/27/17 07:37 19 09/27/17 04:00 98.0 67 16 129/72 (91) 97 09/27/17 00:00 98.1 61 16 115/69 (84) 97 09/26/17 20:00 97.9 75 17 135/73 (93) 96 09/26/17 16:39 97.9 69 18 140/76 (97) 98 09/26/17 12:10 98.0 77 18 142/89 (106) 97 (Amber Wolff MD R1) Result Diagram: 09/26/17 0940 09/26/17 0940 Imaging Last Impressions Pelvis CT 09/22/17 0000 Signed Impressions: CONCLUSION: 1. Subcutaneous inflammatory changes in left medial thigh extending to the lab ia. Objective Remarks GENERAL: Well-nourished, well-developed female lying in bed, in obvious distress. SKIN: Warm and moist. No rash. * L Buttocks: Left buttocks with palpable indurated area extending via tract to labial area. Left buttocks also with a 1 cm circular opening with purulent material visualized and minimal drainage. Patient tender to palpation along the buttocks as well as the inguinal and labial area. Tender lymphadenopathy appreciated in the inguinal area. Erythematous skin changes resolved. Overall much improved. HEENT: Atraumatic, normocephalic with extraocular motions intact. No rhinorrhea. CARDIOVASCULAR: Regular rate rhythm. No obvious murmurs, gallops, or rubs. RESPIRATORY: No increased work of breathing. Clear to auscultation bilaterally with no crackles, wheezes, or rhonchi. GASTROINTESTINAL: Positive bowel sounds. Abdomen soft, non-tender, nondistended. No masses appreciated. MUSCULOSKELETAL: No cyanosis or edema. No calf tenderness. Ambulating favoring the left side due to pain without assistance. NEURO/PSYCH: Awake, alert, and oriented x3. Normal speech and judgement. Medications and IVs Current Medications Medications (Trade) Dose Ordered Sig/Helene Route Start Time Stop Time Status Last Admin (NS Flush) 2 ml BID IV FLUSH 09/23/17 09:00 09/27/17 08:03 (NS Flush) 2 ml UNSCH PRN IV FLUSH 09/22/17 23:30 09/24/17 23:10 (Tylenol) 500 mg Q4H PRN PO 09/22/17 23:30 09/23/17 21:25 (Toradol Inj) 30 mg Q6H IVP 09/22/17 23:30 09/27/17 23:29 09/27/17 06:36 (Heparin Inj) 5,000 units Q8H SQ 09/22/17 23:30 09/27/17 06:35 (Zofran Odt) 4 mg Q6H PRN PO 09/23/17 01:15 09/25/17 06:04 (Bessy-Colace) 1 tab BID PO 09/23/17 09:00 09/26/17 08:22 (Milk Of Magnesia Liq) 30 ml Q12H PRN PO 09/23/17 01:15 (Senokot) 17.2 mg Q12H PRN PO 09/23/17 01:15 (Dulcolax Supp) 10 mg DAILY PRN RECTAL 09/23/17 01:15 (Albuterol Neb) 2.5 mg Q6HR NEB PRN NEB 09/23/17 01:15 (Catapres) 0.1 mg Q6H PRN PO 09/23/17 01:15 (Cleocin) 450 mg Q6HR PO 09/26/17 12:00 09/27/17 06:36 (Amber Wolff MD R1) Urinary Catheter: No (Amber Wolff MD R1) Vascular Central Line Catheter: No (Amber Wolff MD R1) A/P Assessment and Plan Patient is a 52-year-old female admitted for cellulitis secondary to failure of outpatient antibiotics. Discharge Planning Today. (Amber Wolff MD R1) Attending Attestation Patient seen and examined. Case reviewed and discussed with the resident team. Agree with plan of care as discussed with me and documented in the resident note. doing very well tolerated po and her infection continues to improve (Katt Brown MD) Problem List: (1) Sepsis ICD Codes: A41.9 - Sepsis, unspecified organism Status: Resolved Plan: On admission, patient met sepsis criteria with fever up to 100.3 after at home Tylenol dose with tachycardia up to 101 bpm. Likely source of infection left buttock cellulitis. Lactic acid 0.9. Resolved as of 09/23. (2) Cellulitis and abscess of buttock ICD Codes: L02.31 - Cutaneous abscess of buttock; L03.317 - Cellulitis of buttock Status: Acute Plan: Patient with cellulitis. Failed outpatient antibiotic treatment. Clinically improving. Admission Labs: * WBC 11.2 with 80.5% neutrophils. * ESR: 60. Microbiology: * Blood culture: no growth to date. * Wound culture: MRSA. Sensitivities available. Imaging: * CT abdomen and pelvis 09/22: Large area of induration in the subcutaneous tissues of the left buttock that extend to the labia without defined fluid. Orders: * K thermia pad ordered. Medications: * Clindamycin 450mg PO q6hr. * Toradol 30 mg IV q6hr. * Tylenol as needed for fever. Consults: * Wound Care: Cleanse intra gluteal cleft and perineum with Remedy soft cloth barrier wipes pat dry. Apply Maxorb cut to fit wound base to right intra gluteal cleft open abscess, then cover with dry 2x2 gauze secure with boarder gauze sign and date change dressing every 3 days or as needed for exudate management/dislodgement. Keep indurated area to right groin/labia clean and dry. Reconsult wound care if treatment fails or wounds worsen. * General surgery. No drainable abscess at this time. (3) Failure of outpatient treatment ICD Codes: Z78.9 - Other specified health status Status: Acute Plan: Patient admitted to failing outpatient therapy with clindamycin. (4) Nutrition, metabolism, and development symptoms ICD Codes: R63.8 - Other symptoms and signs concerning food and fluid intake Status: Acute Plan: Fluids: * Encourage PO intake. Diet: * Regular as tolerated. Electrolytes: * Monitor and replete as necessary. (5) DVT prophylaxis Status: Acute Plan: SCDs Medications: * Heparin 5000 units q8hr. (Amber Wolff MD R1) Problem Qualifiers (1) Sepsis: Qualified Codes: A41.9 - Sepsis, unspecified organism Amber Wolff MD R1 Sep 27, 2017 11:25 Katt Brown MD Sep 27, 2017 16:16
--- NOTE | 2017-09-27 13:01 | PD.CAR.PN ---
CVT Progress Note Subjective/Hospital Course: 52-year-old female with about a week pain in her left buttock area and left groin Patient states that she was initially placed on antibiotics but now things got worse Physical examination reveals a draining area of the left buttock which might have been a bite of some sort of the time and then indurated area alongside the left inner thigh toward the labia This is sort of diffuse cellulitis and phlegmon and not a fluctuant area that would be drainable At this point patient try warm compresses, antibiotics and analgesia so this will go either of 2 ways. First possibility is that when antibiotics and local care the whole thing is going to slowly dissolve and disappear soft not and patient will be discharged. More likely however this cellulitis will shrink down and finally form a fluctuant area that can be drained I will follow the patient and as soon as I see that this is fluctuant I will take her to the OR and drain at Considering that this is acute, I do not suspect anything but the infection at this time however, you never know and I will have some tissue sent for biopsy just in case We will follow 09/26/2017 Patient with a cellulitis and swelling of the left buttock Area still not fluctuant but is sort of indurated Would allow antibiotics to work for another day or 2 and will take patient to the operating room for examined stirrups and I&D on Thursday09/27/2017 The cellulitis of the buttocks is almost completely disappeared on antibiotics and induration is almost completely gone There are no fluctuant areas at this time and there is really nothing to drain Patient will need to remain on p.o. antibiotics and this will either result in complete resolution of the problem or the infection will return at which point patient will need I&D At this point I agree with patient being sent home on oral antibiotics Objective: Vital Signs Date Time Temp Pulse Resp B/P (MAP) Pulse Ox O2 Delivery O2 Flow Rate FiO2 09/27/17 08:34 97.9 76 18 133/88 (103) 97 09/27/17 07:37 19 09/27/17 04:00 98.0 67 16 129/72 (91) 97 09/27/17 00:00 98.1 61 16 115/69 (84) 97 09/26/17 20:00 97.9 75 17 135/73 (93) 96 6/16/18 16:39 97.9 69 18 140/76 97 98 Result Diagram: 09/26/17 0940 09/26/17 0940 Lizeth Lopez MD Sep 27, 2017 13:01
== END 2017-09-27 12:37 | disposition home or self-care (01) | DRG 872 ==
LOC: NEPE 17:03 → NEDA 22:42 → NEPFCDU 09-23 00:06 → N05A 09-24 15:30
PROVIDERS: ADMIT Family Medicine; ATTEND Family Medicine
DX: A41.02 Sepsis due to Methicillin resistant Staphylococcus aureus (principal); L02.31 Cutaneous abscess of buttock; L03.317 Cellulitis of buttock; R59.0 Localized enlarged lymph nodes; F17.200 Nicotine dependence, unspecified, uncomplicated; Z85.3 Personal history of malignant neoplasm of breast; Z88.2 Allergy status to sulfonamides; Z88.5 Allergy status to narcotic agent; Z91.013 Allergy to seafood
CPT/HCPCS: 72193; 80048; 80053; 80202; 83605; 83735; 85025; 85027; 85610; 85652; 86403; 87040; 87070; 87147; 87186; 87205; 87641; 96365; 96368; 96375; J1644; J1885; J2543; J2765; J3370; J7030; J7040; J7050; Q9967